=== PATIENT | male | born 1955 | race Caucasian/White ===

== ENCOUNTER 2022-10-05 09:35 | Outpatient (REF) | payer OTHER, SELFPAY ==
--- NOTE | ~2022-10-05 | XR_ITS ---
EXAMINATION: XR SHOULDER, RIGHT CLINICAL INFORMATION: Right shoulder pain after fall COMPARISON: None available. TECHNIQUE: AP external rotation, Grashey, scapular Y, and axillary views of the right shoulder. FINDINGS: The bones are intact no fracture. Glenohumeral and acromioclavicular alignment is anatomic with normal joint space. Small marginal osteophyte extends off the femoral head. There is a faint calcific density superior to the humeral head and glenoid as seen on the AP view. Possibly related to calcific tendinosis. This does not likely resemble a chip fracture. XR/XR shoulder RT min 2V IMPRESSION: 1. No acute bony abnormality. 2. Faint calcific density superior to the humeral head and glenoid, possibly related to calcific tendinosis.
--- NOTE | ~2022-10-05 | XR_ITS ---
EXAMINATION: XR HIP, LEFT CLINICAL INFORMATION: Left hip pain COMPARISON: None available. TECHNIQUE: Two views of the left hip. FINDINGS: No fracture. Alignment is anatomic. Hip joint space is maintained. Soft tissues are unremarkable. XR/XR hip LT min 2V IMPRESSION: Normal left hip.
--- NOTE | ~2022-10-05 | XR_ITS ---
EXAMINATION: XR LUMBOSACRAL SPINE WITH OBLIQUES CLINICAL INFORMATION: Low back pain COMPARISON: 01/10/2018 TECHNIQUE: AP, both oblique, and lateral views of the lumbar spine. Lateral view of the lumbosacral junction. FINDINGS: There are 5 not ribs bearing vertebral bodies in the lumbar spine. There is worsening of levoscoliosis. There are endplate spurring extending from L2 to L5. There is narrowing of intervertebral disc spaces the level of L4-L5 and vacuum phenomenon at the level of L5-S1 and L4-L5. Pedicles XR/XR lumbar spine 4V min IMPRESSION: Multilevel degenerative changes and levoscoliosis.
== END 2022-10-05 09:36 | disposition home or self-care (01) ==
LOC: HO.HHCX 09:35
PROVIDERS: Visit Provider Internal Medicine
DX: M54.42 Lumbago with sciatica, left side (principal); M25.511 Pain in right shoulder
CPT/HCPCS: 72110; 73030; 73502

== ENCOUNTER 2023-01-03 10:00 | Outpatient (RCR) | payer OTHER, SELFPAY | END 2023-01-03 10:55 | disposition home or self-care (01) | LOC: HO.PT 10:00 | PROVIDERS: PCP Internal Medicine; Visit Provider Internal Medicine | DX: M25.511 Pain in right shoulder (principal); M54.42 Lumbago with sciatica, left side | CPT/HCPCS: 97110; 97140; 97162; 97530 ==

== ENCOUNTER 2023-02-02 09:49 | Outpatient (AMB) | payer OTHER, SELFPAY ==
--- NOTE | 2023-02-02 10:03 | MHC.OFFVIS ---
Intake Intake Visit Reasons: [employer]- Right shoulder pain Intake Note: Nolberto is a 67 year old male who presents today as a new patient with complaints of bilateral shoulder pains and weakness, left greater than right. Patient describes his left shoulder pain as sharp and severe in nature. He did fall onto his left side approximately 1 year ago. Since that time his symptoms have gotten worse in spite of continued non operative treatments. He has done physical therapy for 12 weeks over the last 6 months which aggravated his pain. He has also tried Tylenol and anti-inflammatory medicines which gave him minimal relief. He has had injections in the past which gave him no relief. He reports difficulty lifting his left hand above shoulder height. Allergies No Known Allergies [No Known Allergies*] Allergy (Unverified 11/22/19 15:36) [facility] Surgical History (Updated 02/02/23 @ 10:13 by Marsha Martinez [facility]) Hx of left knee surgery Physical Exam Const Other: Well-nourished well-developed very friendly male awake alert and oriented x3 in no acute distress Extrem Other: Bilateral upper extremity examination shows good capillary refill, no skin lesions noted, normal sensation light touch Left shoulder examination shows decreased range of motion when compared to his right shoulder, 4/5 strength with supraspinatus testing, positive impingement signs, tenderness over his acromioclavicular joint, no instability Results Reviewed Results Reviewed: X-rays of the patient's right shoulder show severe acromioclavicular joint narrowing, type 2 acromion, no acute bony abnormalities Assessment & Plan Assessment & Plan (1) Impingement of right shoulder: Code(s): M25.811 - Other specified joint disorders, right shoulder (2) Impingement syndrome of left shoulder: Code(s): M75.42 - Impingement syndrome of left shoulder Plan: Mr. Abbasi presents with progressively worsening bilateral shoulder pains and weakness, left greater than right, most likely due I spent 22 minutes in reviewing the patient's records and imaging studies, seeing the patient and documenting in the medical record. Orders: Orders MR shoulder LT wo con Today M75.42 - Impingement syndrome of left shoulder Coding Level of Care Code New Pt Level 2 (61132) Diagnoses Impingement of right shoulder M25.811 Impingement syndrome of left shoulder M75.42
== END 2023-02-02 10:29 | disposition home or self-care (01) ==
PROVIDERS: PCP Internal Medicine; Visit Provider Orthopaedic Surgery
DX: M25.811 Other specified joint disorders, right shoulder (principal); M75.42 Impingement syndrome of left shoulder
CPT/HCPCS: 99202

== ENCOUNTER → 2023-02-02 09:49 | Outpatient (BNVA) | payer OTHER, SELFPAY | PROVIDERS: PCP Internal Medicine; Visit Provider Orthopaedic Surgery | DX: M25.811 Other specified joint disorders, right shoulder (principal); M75.42 Impingement syndrome of left shoulder | CPT/HCPCS: 99202 ==

== ENCOUNTER 2023-04-28 10:19 | Outpatient (REF) | payer OTHER, SELFPAY ==
--- NOTE | ~2023-04-28 | MR_ITS ---
EXAMINATION: MR SHOULDER WITHOUT CONTRAST, LEFT CLINICAL INFORMATION: Left shoulder pain and decreased range of motion. COMPARISON: Left shoulder radiographs dated 10/16/2018. TECHNIQUE: MRI of the shoulder without contrast was performed on a high-field scanner. FINDINGS: ROTATOR CUFF: Complete, full-thickness tears of the supraspinatus and infraspinatus tendons measuring approximately 5.1 x 5.7 cm (AP x ML) with retraction of the torn tendon fibers proximal to the glenohumeral articulation. Edema within the infraspinatus muscle belly consistent with an acute muscle strain. Significant attenuation and irregularity of the subscapularis tendon, consistent with a near complete full-thickness tear. There are a few thin superior tendon fibers remaining intact. Severe subscapularis, supraspinatus, and infraspinatus muscle atrophy. Intact teres minor tendon. BICEPS: Significant thickening and heterogeneity of the proximal long head biceps tendon, consistent tendinosis. There is attenuation and medial subluxation as it drapes over the lesser tuberosity, consistent with longitudinal partial tearing. CORACOACROMIAL ARCH: The undersurface of the acromion is flat with small subacromial spurs. Hwamwspn-yo-oxhrgw acromioclavicular osteoarthritis. LABRUM/CAPSULE: Blunting and heterogeneity through the periphery of the superior and posterosuperior labrum, consistent with degenerative fraying/tearing. Intact inferior joint capsule. GLENOHUMERAL JOINT/MARROW: Superior subluxation of the humeral head related to the rotator cuff tendon tears. Articular cartilage signal heterogeneity and surface irregularity with superior humeral head articular cartilage thinning. Marginal osteophytes. Dsthoapp-jk-zvmsy joint effusion with mild synovitis. MR/MR shoulder LT wo con IMPRESSION: 1. Complete, full-thickness tears of the supraspinatus and infraspinatus tendons with retraction of the tendon fibers proximal to the glenohumeral articulation. Edema within the infraspinatus muscle belly consistent with an acute muscle strain. Near complete full-thickness tear of the subscapularis tendon with a few superior tendon fibers remaining intact. Severe subscapularis, supraspinatus, and infraspinatus muscle atrophy. 2. Proximal long head biceps tendinosis with longitudinal partial tearing as it drapes over the lesser tuberosity. 3. Mrflkpes-gf-qqtrzl acromioclavicular osteoarthritis with small subacromial spurs. 4. Degenerative fraying/tearing through the periphery of the superior and posterosuperior labrum. 5. Superior subluxation humeral head related to the rotator cuff tendon tears. Mild glenohumeral osteoarthritis. Xoyvwjfu-vc-fpprg joint effusion with mild synovitis.
== END 2023-04-28 10:20 | disposition home or self-care (01) ==
LOC: HO.MRI 10:19
PROVIDERS: PCP Internal Medicine; Visit Provider Orthopaedic Surgery
DX: M75.42 Impingement syndrome of left shoulder (principal)
CPT/HCPCS: 73221

== ENCOUNTER 2023-05-17 12:55 | Outpatient (AMB) | payer OTHER, SELFPAY ==
--- NOTE | 2023-05-17 12:56 | MHC.OFFVIS ---
Intake Vital Signs 05/17/23 12:59 Height 5 ft 2 in Weight 214 lb BMI 39.1 Intake Visit Reasons: OV- MRI follow up Intake Note: Nolberto is a 67 year old Right hand dominate male who presents with his granddaughter for his MRI review of his Left shoulder. The patient states that he injured his left shoulder approximately 2 years ago when he fell directly onto his left side. Since that time he has had weakness when lifting his left hand above shoulder height. He has done physical therapy exercises which aggravated his pain. He has also tried Tylenol and anti-inflammatory medicines which gave him minimal relief. Allergies No Known Allergies [No Known Allergies*] Allergy (Verified 05/17/23 13:00) Medication List - Last Reconciled 05/17/23 by Cayden Montemayor MD acetaminophen ER 650 mg PO Q8H PRN amlodipine 5 mg PO QPM aripiprazole 5 mg PO QAM atorvastatin 40 mg PO QPM lancets (OneTouch Delica Plus Lancet) As directed loratadine 10 mg PO QAM meloxicam 15 mg PO QAM metformin ER 1,000 mg PO QPM metoprolol succinate ER 100 mg PO QPM trazodone 50 mg PO BEDTIME venlafaxine ER 150 mg PO QAM zolpidem 5 mg PO BEDTIME PFSH Surgical History (Updated 02/02/23 @ 10:13 by Marsha Martinez [facility]) Hx of left knee surgery Social History (Updated 05/17/23 @ 13:02 by Meeta Corey [facility]) Patient Tobacco Use Status: Never used Tobacco Current occupational status: retired Current occupation: Right hand dominate Physical Exam Vital Signs: BMI result Body Mass Index 39.1 Const Other: Well-nourished well-developed very friendly male awake alert and oriented x3 in no acute distress Extrem Other: Bilateral upper extremity examination shows good capillary refill, no skin lesions noted, normal sensation light touch Left shoulder examination shows full passive range of motion but decreased active range motion when compared to his right shoulder, 3/5 strength with supraspinatus testing, positive impingement signs, no instability Results Reviewed Results Reviewed: MRI of the patient's left shoulder shows a large rotator cuff tear involving the supraspinatus and infraspinatus tendons with retraction to the glenoid lip Assessment & Plan Assessment & Plan (1) Complete rotator cuff tear of left shoulder: Code(s): M75.122 - Complete rotator cuff tear or rupture of left shoulder, not specified as traumatic Plan Mr. Abbasi presents with left shoulder pain and weakness due to a chronic rotator cuff tear. I had a lengthy discussion with the patient and his granddaughter regarding the treatment options. At this point the patient's symptoms are tolerable to him. He wishes to hold off on surgery for as long as possible. I agree with this plan. Activity modifications were discussed at length with the patient. If the patient's symptoms do worsen I will have him evaluated by Dr. Elizabeth who can further discuss the risks and benefits of reverse total shoulder replacement surgery. Feel free to call me at any time should questions regarding his orthopedic management arise. I spent 22 minutes in reviewing the patient's records and imaging studies, seeing the patient and documenting in the medical record. Coding Level of Care Code Est Pt Level 2 (97982) Diagnoses Complete rotator cuff tear of left shoulder M75.122
[2023-05-17 12:59] VITALS: BMI 39.1
== END 2023-05-17 13:19 | disposition home or self-care (01) ==
PROVIDERS: PCP Internal Medicine; Visit Provider Orthopaedic Surgery
DX: M75.122 Complete rotator cuff tear or rupture of left shoulder, not specified as traumatic (principal)
CPT/HCPCS: 99213

== ENCOUNTER → 2023-05-17 12:55 | Outpatient (BNVA) | payer OTHER, SELFPAY | PROVIDERS: PCP Internal Medicine; Visit Provider Orthopaedic Surgery | DX: M75.122 Complete rotator cuff tear or rupture of left shoulder, not specified as traumatic (principal) | CPT/HCPCS: 99212 ==

== ENCOUNTER 2023-07-12 08:47 | Outpatient (REF) | payer OTHER, SELFPAY ==
[2023-07-12 12:25] LABS: Creatinine Urine 155.21 mg/dL
[2023-07-12 12:34] LABS: Alanine Aminotransferase 42 U/L (0-40); Albumin Level 4.4 g/dL (3.5-5.0); Alkaline Phosphatase 85 U/L (39-117); Anion Gap 14 (12-20); Aspartate Amino Transferase 30 U/L (5-37); Bilirubin Total 0.6 mg/dL (0.0-1.0); Blood Urea Nitrogen 14 mg/dL (9-16); Carbon Dioxide 28 mmol/L (22-29); Chloride 104 mmol/L (96-108); Cholesterol 141 mg/dL (<200); Estimated Glomerular Filt Rate > 60; Glucose Random 112 mg/dL (60-115); HDL Cholesterol 45 mg/dL (>40); LDL Cholesterol Calculated 57 mg/dL (<100); Potassium 4.1 mmol/L (3.3-5.1); Sodium 142 mmol/L (135-145); Total Protein 7.7 g/dL (6.5-8.0); Triglycerides 198 mg/dL (<150)
[2023-07-12 12:41] LABS: Microalbum/Creatinine Ratio Ur 425.8 ug/mg cr (<30)
== END 2023-07-12 08:48 | disposition home or self-care (01) ==
LOC: HO.HHCL 08:47
PROVIDERS: Visit Provider Internal Medicine
DX: E11.9 Type 2 diabetes mellitus without complications (principal)
CPT/HCPCS: 36415; 80053; 80061; 82043; 82570

== ENCOUNTER 2024-03-29 10:17 | Outpatient (REF) | payer OTHER, SELFPAY ==
[2024-03-29 11:48] LABS: Alanine Aminotransferase 59 U/L (0-40); Albumin Level 4.1 g/dL (3.5-5.0); Alkaline Phosphatase 87 U/L (39-117); Anion Gap 10 (12-20); Aspartate Amino Transferase 48 U/L (5-37); Bilirubin Total 0.4 mg/dL (0.0-1.0); Blood Urea Nitrogen 14 mg/dL (9-16); Calcium 9.7 mg/dL (8.4-10.2); Carbon Dioxide 28 mmol/L (22-29); Chloride 108 mmol/L (96-108); Cholesterol 125 mg/dL (<200); Estimated Glomerular Filt Rate > 60; Glucose Random 113 mg/dL (60-115); HDL Cholesterol 43 mg/dL (>40); LDL Cholesterol Calculated 56 mg/dL (<100); Potassium 4.8 mmol/L (3.3-5.1); Sodium 141 mmol/L (135-145); Total Protein 7.7 g/dL (6.5-8.0); Triglycerides 132 mg/dL (<150)
[2024-03-29 12:34] LABS: Prostate Specific Antigen 0.41 ng/mL (<0.05-4.0)
== END 2024-03-29 10:18 | disposition home or self-care (01) ==
LOC: HO.HHCL 10:17
PROVIDERS: Visit Provider Internal Medicine
DX: Z00.00 Encounter for general adult medical examination without abnormal findings (principal); I10 Essential (primary) hypertension; E11.9 Type 2 diabetes mellitus without complications; Z12.5 Encounter for screening for malignant neoplasm of prostate
CPT/HCPCS: 36415; 80053; 80061; 84153

== ENCOUNTER 2024-05-08 09:11 | Outpatient (REF) | payer OTHER, SELFPAY ==
--- OUTSIDE RECORDS SUMMARY | 2024-05-08 10:09 | XMS_ITS | Encounter Summary ---
Author Organization [employer] Address [address] [facility] [address] [place] [address] Care Team Providers Care Contract Forester Name Role Phone Jaxon Sousa MD Primary Care Provide r Reason for Visit * Reason Comments Rash Encounter Details Date Type Department Care Team ([facility] Contact Info) Description 05/07/2024 11:00 AM EST Office Visit [facility] [address], [place] [phone] Chandrakant Alva MD [address] [place] [address] Rash (Primary Dx); Hypertension, unspecified type Social History Tobacco Use Types Packs/Day Years Used Date Smoking Tobacco: Never Passive Smoke Exposure: Never Smokeless Tobacco: Never Depression Answer Date Recorded Patient Health Questionnaire-9 Score 2 07/25/2023 Patient Health Questionnaire-9 Score 2 07/25/2023 Last PHQ-9: Questionnaire Data Not on file 0 07/25/2023 Housing Stability Answer Date Recorded What is your housing situation today? I have marine de luna 04/27/[address] you li ve. Do you have problems with any of the following? None of the above 04/27/2023 Food Insecurity Answer Date Recorded Within the past 12 months, y ou worried that your food would run out before you got money to buy more: Never True 04/27/2023 Within the past 12 months,th e food you bought just didn't last and you didn't have enough money to get more: Never True Transportation Answer Date Recorded In the past 12 months, has l ack of transportation kept you from medical appts, meetings, work or from getting things needed for daily living? No 04/27/2023 Utilities Answer Date Recorded In the past 12 months, has t he electric, gas, oil or water company threatened to shut off services in your home? No 04/27/2023 Depression Answer Date Recorded Patient Health Questionnaire-2 Score 1 07/25/2023 Internet Access Answer Date Recorded Internet Access Q1 Yes 11/07/2023 Internet Access Q2 Not on file 11/07/2023 Sex and Gender Information Value Date Recorded Sex Assigned at Male 01/04/2022 10:14 AM EDT Legal Sex Male 10:14 AM EDT Gender Identity Male 01/04/2022 10:14 AM EDT Sexual Orientation Straight 01/04/2022 10 :14 AM EDT documented as of this encounter Last Filed Vital Signs Vital Sign Reading Time Taken Comments Blood Pressure 156/89 05/07/2024 11:21 AM EST Pulse 81 05/07/2024 11:21 AM EST Temperature 36.4 ??C (97.6 ??F) 05/07/2024 1 1:21 AM EST Respiratory Rate 20 05/07/2024 11:2 1 AM EST Oxygen Saturation 98% 05/07/2024 11: 21 AM EST Inhaled Oxygen Concentration - - Weight 97.9 kg (215 lb 12.8 oz) 025 11:21 AM EST Height - - Body Mass Index 38.23 04/10/2024 1:11 PM EST documented in this encounter Progress Notes * Chandrakant Alva MD - 05/07/2024 11:00 AM EST Subjective Patient ID: Nolberto Ladd is a 68 y.o. male. R&D Engineer: Alex SHEPHERD Nolberto was seen in walk-in center 04/10/2024 for 2-week history of itchy rash. He was diagnosed with urticaria and prescribed Zyrtec. He returns today because he tried Zyrtec and he has had no relief of sx. Itchy rash started on hands, then spread to arms, chest head, neck, fewer on bilat lower extremities. States had similar sx years ago, doesn't remember dx or tx. Denies SOB, swelling, sensation of throat tightness, new medications, soap, shampoo, detergent, or deodorant. Denies tick bite, or known contacts who have a rash. Lives with and daughter. Never smoked. Patient Active Problem List Diagnosis Chronic obstructive lung disease ([facility]) Depressive disorder Hypertension Mixed hyperlipidemia Obstructive sleep apnea syndrome Preventative health care Dry skin dermatitis MDD (major depressive disorder), recurrent, in partial remission ([facility]) Type 2 diabetes mellitus without complication, without long-term current use of insulin ([facility]) Class 2 severe obesity due to excess calories with serious comorbidity and body mass index (BMI) of38.0 to 38.9 in adult ([facility]) Chronic left-sided low back pain with left-sided sciatica Chronic right shoulder pain Routine physical examination Skin lesion The following portions of the chart were reviewed this encounter and updated as appropriate: Tobacco Allergies Meds Problems Med Hx Surg Hx Fam Hx Review of Systems Constitutional: Negative for fever. Respiratory: Negative for shortness of breath. Cardiovascular: Negative for chest pain. Gastrointestinal: Negative for abdominal pain. Skin: Positive for rash. Neurological: Negative for headaches. Objective Physical Exam Constitutional: Appearance: Normal appearance. HENT: Right Ear: Tympanic membrane, ear canal and external ear normal. Left Ear: Tympanic membrane, ear canal and external ear normal. Nose: Nose normal. Mouth/Throat: Mouth: Mucous membranes are moist. Pharynx: Oropharynx is clear. Eyes: Conjunctiva/sclera: Conjunctivae normal. Pupils: Pupils are equal, round, and reactive to light. Cardiovascular: Rate and Rhythm: Normal rate and regular rhythm. Heart sounds: No murmur heard. Pulmonary: Effort: Pulmonary effort is normal. Breath sounds: Normal breath sounds. Musculoskeletal: General: Normal range of motion. Cervical back: No tenderness. Skin: Findings: No rash. Comments: Multiple oval, round, and serpiginous maculopapular lesions with erythematosus borders ofdifferent sizes located on face, scalp, neck, chest, bilat upper extremities. Involves bilateral hands extensor surfaces, no lesions on palmar surfaces. Neurological: Mental Status: He is alert. Gait: Gait is intact. Psychiatric: Mood and Affect: Mood normal. Behavior: Behavior normal. Procedures Assessment/Plan Diagnoses and all orders for this visit: Rash ? Urticaria vs tinea corporis vs erythema migrans vs ? Lab tests ordered will call patient with results. Prescribed prednisone and Lotrimin 1% cream. Referred to [facility]. Return to clinic if rash is spreading. - RPR (Monitor) with Reflex to Titer; Future - Lyme Disease Ab with Reflex to Blot (IgG, IgM); Future Hypertension, unspecified type Has home BP monitor. Reviewed BP parameters, given written BP log that includes BP parameters, to keep daily. Bring blood pressure log to previously scheduled PCP appointment. Other orders - clotrimazole (Lotrimin) 1 % cream; Apply topically 2 times daily. - predniSONE (Deltasone) 20 MG tablet; Take 2 tablets (40 mg) by mouth Once per day for 5 days. documented in this encounter Plan of Treatment Upcoming Encounters Date Type Department Care Team (Late st Contact Info) Description 05/11/2024 1:15 PM EST Office Visit [address] [phone] Karen Ray MD [address] [place] [phone] 06/07/2024 11:30 AM EDT Office Visit [address] [phone] Jaxon Sousa MD [address] [place] [phone] Scheduled Orders Name Type Priority Associated Diagnoses Orde r Schedule RPR (Monitor) with Reflex to??Titer Lab Routine Rash Expected: 05/07/2024 (Approximate), Expires: 05/07/2025 Lyme Disease Ab with Reflex to Blot (IgG, IgM) Lab Routine Rash Expected: 05/07/2024, Expires: 05/07/2025 documented as of this encounter Visit Diagnoses Diagnosis Rash- Primary Rash and other nonspecific skin eruption Hypertension, unspecified type documented in this encounter Additional Health Concerns Assessment Noted Time PHQ-9 Depression Total Score: 2 07/25/19 24 9:14 AM EDT documented as of this encounter Care Teams Contract Forester Relationship Specialty Start Date End Date Jaxon Sousa MD [address] [place] [phone] PCP - General Internal Medicine 11/13/13 documented as of this encounter
--- OUTSIDE RECORDS SUMMARY | 2024-05-08 10:09 | XMS_ITS | Encounter Summary ---
Author Organization [employer] Address [address] [facility] [address], [place] [address] Care Team Providers Care Scale Expert Name Role Phone Jaxon Sousa MD Primary Care Provide r Encounter Details Date Type Department Care Team (Late st Contact Info) Description 04/09/2022 Orders Only [facility] MED[facility]INE [address] [place] [address] [phone] Zoe Cueva LPN Social History Tobacco Use Types Packs/Day Years Used Date Smoking Tobacco: Never Assessed Sex and Gender Information Value Date Recorded Sex Assigned at Male 01/04/2022 10:14 AM EDT Legal Sex Male 10:14 AM EDT Gender Identity Male 01/04/2022 10:14 AM EDT Sexual Orientation Straight 01/04/2022 10 :14 AM EDT COVID-19 Exposure Response Date Recorded In the last 10 days, have yo u been in contact with someone who was confirmed or suspected to have Coronavirus/COVID-19? No / Unsure 04/01/2022 11:51 AM EST documented as of this encounter Plan of Treatment Upcoming Encounters Date Type Department Care Team (Late st Contact Info) Description 05/11/2024 1:15 PM EST Office Visit [facility] MED[facility]INE [address] [place] [phone] Karen Ray MD [address] [place] [phone] 06/07/2024 11:30 AM EDT Office Visit [facility]INE [address] [place] [address] [phone] Jaxon Sousa MD [address] [place] [address] documented as of this encounter Visit Diagnoses Not on filedocumented in this encounter Care Teams Scale Expert Relationship Specialty Start Date End Date Jaxon Sousa MD [address] [place] [address] PCP - General Internal Medicine 11/13/13 documented as of this encounter
--- OUTSIDE RECORDS SUMMARY | 2024-05-08 10:09 | XMS_ITS | Encounter Summary ---
Author Organization [employer] Address [address] [facility] [address] [place] [address] Care Team Providers Care Production Line Operator Name Role Phone Jaxon Sousa MD Primary Care Provide r Encounter Details Date Type Department Care Team ([facility] Contact Info) Description 05/03/2022 Orders Only [facility] [address] [place], [place] [phone] Fauzia Bravo LPN Social History Tobacco Use Types Packs/Day Years Used Date Smoking Tobacco: Never Smokeless Tobacco: Never Sex and Gender Information Value Date Recorded [...] suspected to have Coronavirus/COVID-19? No / Unsure 04/15/2022 8:55 AM EST documented as of this encounter Plan of Treatment Upcoming Encounters Date Type Department Care Team ([facility] Contact Info) Description 05/11/2024 1:15 PM EST Office Visit [facility] MED[facility]INE [address] [place] [address] [phone] Karen Ray MD [address] [place] [phone] 06/07/2024 11:30 AM EDT Office Visit [facility] [address] [place] [phone] Jaxon Sousa MD [address] [place] [address] documented as of this encounter Visit Diagnoses Not on filedocumented in this encounter Additional Health Concerns Assessment Noted Time PHQ-9 Depression Total Score: 0 04/15/19 23 9:12 AM EST documented as of this encounter Care Teams Production Line Operator Relationship Specialty Start Date End Date Jaxon Sousa MD [address] [place] [address] PCP - General Internal Medicine 11/13/13 documented as of this encounter
--- OUTSIDE RECORDS SUMMARY | 2024-05-08 10:09 | XMS_ITS | Encounter Summary ---
Author Organization [employer] Address [address] [facility] [address] [place] [address] Care Team Providers Care Field Examiner Name Role Phone Jaxon Sousa MD Primary Care Provide r Encounter Details Date Type Department Care Team (Latest Contact Info) Description 04/10/2024 Travel Social History Tobacco Use Types Packs/Day Years [...] AM EDT documented as of this encounter Plan of Treatment Upcoming Encounters Date Type Department Care Team (Late st Contact Info) Description 05/11/2024 1:15 PM EST Office Visit [facility] MED[facility] [address] [place] [phone] Karen Ray MD [address] [place] [address] 06/07/2024 11:30 AM EDT Office Visit [facility] [address] [place] [phone] Jaxon Sousa MD [address] [place] [phone] documented as of this encounter Visit Diagnoses Not on filedocumented in this encounter Additional Health Concerns Assessment Noted Time PHQ-9 Depression Total Score: 2 07/25/19 24 9:14 AM EDT documented as of this encounter Care Teams Field Examiner Relationship Specialty Start Date End Date Jaxon Sousa MD [address] [place] [phone] PCP - General Internal Medicine 11/13/13 documented as of this encounter
--- OUTSIDE RECORDS SUMMARY | 2024-05-08 10:09 | XMS_ITS | Encounter Summary ---
Author Organization [employer] Address 75 [facility] [address] [address] Care Team Providers Care Sports Broadcasting Internship Name Role Phone Jaxon Sousa MD Primary Care Provide r Reason for Visit * Reason Comments Med Refill Encounter Details Date Type Department Care Team ([facility] st Contact Info) Description 04/29/2024 Refill [facility] [address] [place], [place] [phone] Jaxon Sousa MD [address] [place], [place] [phone] Seasonal allergies; Newly diagnosed diabetes (CMS/HCC); MDD (major depressive disorder), recurrent, in partial remission (CMS/HCC) Social History Tobacco Use Types Packs/Day Years [...] Description 05/11/2024 1:15 PM EST Office Visit [facility] [address] [place] [phone] Karen Ray MD [address] [place] [address] 06/07/2024 11:30 AM EDT Office Visit [facility] [address] [place] [address] Jaxon Sousa MD [address] [place] [address] documented as of this encounter Visit Diagnoses Diagnosis Seasonal allergies Allergic rhinitis, cause unspecified Newly diagnosed diabetes (CMS/HCC) Type II or unspecified type diabetes mellitus without mention of complication, not stated as uncontrolled MDD (major depressive disorder), recurrent, in partial remission (CMS/HCC) documented in this encounter Additional Health Concerns Assessment Noted Time PHQ-9 Depression Total Score: 2 07/25/19 24 9:14 AM EDT documented as of this encounter Care Teams Sports Broadcasting Internship Relationship Specialty Start Date End Date Jaxon Sousa MD [address] [place] [phone] PCP - General Internal Medicine 11/13/13 documented as of this encounter
--- OUTSIDE RECORDS SUMMARY | 2024-05-08 10:09 | XMS_ITS | Encounter Summary ---
Author Organization [employer] Address 75 [facility] 7t [place] [address] Care Team Providers Care School Administrator Name Role Phone Jaxon Sousa MD Primary Care Provide r Reason for Visit * Reason Comments Med Refill Encounter Details Date Type Department Care Team (Late st Contact Info) Description 05/03/2023 Refill [facility] [address] [place] [address] Teofilo Maxwell FNP MDD (major depressive disorder), recurrent, in partial remission (CMS/HCC) Social History Tobacco Use Types Packs/Day Years Used Date Smoking Tobacco: Never Passive Smoke Exposure: Never Smokeless Tobacco: Never Depression Answer Date Recorded Patient Health Questionnaire-9 Score 1 05/02/2023 Patient Health Questionnaire-9 Score 1 05/02/2023 Last PHQ-9: Questionnaire Data Not on file 0 05/02/2023 Housing Stability Answer Date Recorded What is [...] Answer Date Recorded Patient Health Questionnaire-2 Score 0 05/02/2023 Sex and Gender Information Value Date Recorded Sex Assigned at Male 01/04/2022 10:14 AM EDT Legal Sex Male 10:14 AM EDT Gender Identity Male 01/04/2022 10:14 AM EDT Sexual Orientation Straight 01/04/2022 10 :14 AM EDT documented as of this encounter Plan of Treatment Upcoming Encounters Date Type Department Care Team (Late st Contact Info) Description 05/11/2024 1:15 PM EST Office Visit [facility] [address] [place] [phone] Karen Ray MD [address] [place] [phone] 06/07/2024 11:30 AM EDT Office Visit [facility] [address] [place] [phone] Jaxon Sousa MD [address] [place] [address] documented as of this encounter Visit Diagnoses Diagnosis MDD (major depressive disorder), recurrent, in partial remission (CMS/HCC) documented in this encounter Additional Health Concerns Assessment Noted Time PHQ-9 Depression Total Score: 1 05/02/19 24 9:08 AM EST documented as of this encounter Care Teams School Administrator Relationship Specialty Start Date End Date Jaxon Sousa MD [address] [place] [phone] PCP - General Internal Medicine 11/13/13 documented as of this encounter
--- OUTSIDE RECORDS SUMMARY | 2024-05-08 10:09 | XMS_ITS | Encounter Summary ---
Author Organization [employer] Address [address] [place] [address] [place], [place] [address] Care Team Providers Care Hot Air Furnace Installer Repairer Name Role Phone Jaxon Suosa MD Primary Care Provide r Encounter Details Date Type Department Care Team (Late st Contact Info) Description 07/15/2022 Abstract [facility] MED[facility]INE [address] [place] [address] [phone] Jaxon Sousa MD [address] [place] [phone] Social History Tobacco Use Types Packs/Day Years [...] Encounters Date Type Department Care Team (Late Contact Info) Description 05/11/2024 1:15 PM EST Office Visit [facility] [address] [place] [address] [phone] Karen Ray MD [address] [place] [address] 06/07/2024 11:30 AM EDT Office Visit [facility] [address] [place] [phone] Jaxon Sousa MD [address] [place] [address], [place] [address] documented as of this encounter Procedures Procedure Name Priority Date/Time Associated Diagnosis Comments COLONOSCOPY Routine 12/17/2015 documented in this encounter Results * Colonoscopy (12/17/2015) Colonoscopy Normal Normal 12/17/2015 Narrative Karin Andrew - 12/17/2015 10:29 AM EDT Recommended 10 year follow up us Historical Provider HEALTH MAINTENANCE Edited Result - Final documented in this encounter Visit Diagnoses Not on filedocumented in this encounter Additional Health Concerns Assessment Noted Time PHQ-9 Depression Total Score: 4 05/04/19 23 11:20 AM EST documented as of this encounter Care Teams Hot Air Furnace Installer Repairer Relationship Specialty Start Date End Date Jaxon Sousa MD 230 [place] [address] PCP - General Internal Medicine 11/13/13 documented as of this encounter
--- OUTSIDE RECORDS SUMMARY | 2024-05-08 10:09 | XMS_ITS | Encounter Summary ---
Author Organization [employer] Address 75 [facility] 7t [place] [address] Care Team Providers Care Bid Analyst Name Role Phone Jaxon Sousa MD Primary Care Provide r Encounter Details Date Type Department Care Team ([facility] Contact Info) Description 04/08/2022 Orders Only [facility] [address] [place], [place] [phone] Fauzia Bravo LPN Social History Tobacco Use [...] Upcoming Encounters Date Type Department Care Team ([facility] Contact Info) Description 05/11/2024 1:15 PM EST Office Visit [facility] [address] [place] [address] [phone] Karen Ray MD 230 [place], [place] [phone] 06/07/2024 11:30 AM EDT Office Visit [facility] [address] [place] [address] [phone] Jaxon Sousa MD 230 [place], [place] [phone] documented as of this encounter Visit Diagnoses Not on filedocumented in this encounter Care Teams Bid Analyst Relationship Specialty Start Date End Date Jaxon Sousa MD [address] [place], [place] [phone] PCP - General Internal Medicine 11/13/13 documented as of this encounter
--- OUTSIDE RECORDS SUMMARY | 2024-05-08 10:09 | XMS_ITS | Encounter Summary ---
Author Organization [employer] Address 75 [facility] 7t [place] [address] Care Team Providers Care Digital Editor Name Role Phone Jaxon Sousa MD Primary Care Provide r Encounter Details Date Type Department Care Team (Late st Contact Info) Description 06/09/2022 Orders Only [facility] 505 [place], [place] [phone] Fauzia Bravo LPN Social History Tobacco Use [...] Description 05/11/2024 1:15 PM EST Office Visit [facility] [address] [place] [phone] Karen Ray MD [address] [place] [phone] 06/07/2024 11:30 AM EDT Office Visit [facility] [address] [place] [address] 12[address] Jaxon Sousa MD [address] [place] [address] documented as of this encounter Visit Diagnoses Not on filedocumented in this encounter Additional Health Concerns Assessment Noted Time PHQ-9 Depression Total Score: 4 05/04/19 23 11:20 AM EST documented as of this encounter Care Teams Digital Editor Relationship Specialty Start Date End Date Jaxon Sousa MD [address] [place] [address] PCP - General Internal Medicine 11/13/13 documented as of this encounter
--- OUTSIDE RECORDS SUMMARY | 2024-05-08 10:09 | XMS_ITS | Encounter Summary ---
Author Organization [employer] Address 75 [facility] 7t [place] [address] Care Team Providers Care Geophysical Support Specialist Name Role Phone Jaxon Sousa MD Primary Care Provide r Encounter Details Date Type Department Care Team (Late st Contact Info) Description 07/06/2022 Orders Only [facility]S 505 [place], [place] [phone] Fauzia Bravo LPN Social History Tobacco Use [...] Description 05/11/2024 1:15 PM EST Office Visit [facility] [address] [place] [phone] Karen Ray MD [address] [place] [address] 06/07/2024 11:30 AM EDT Office Visit [facility] [address] [place] [phone] Jaxon Sousa MD [address] [place] [address] 6[address] documented as of this encounter Visit Diagnoses Not on filedocumented in this encounter Additional Health Concerns Assessment Noted Time PHQ-9 Depression Total Score: 4 05/04/19 23 11:20 AM EST documented as of this encounter Care Teams Geophysical Support Specialist Relationship Specialty Start Date End Date Jaxon Sousa MD 230 [place] [address] PCP - General Internal Medicine 11/13/13 documented as of this encounter
--- OUTSIDE RECORDS SUMMARY | 2024-05-08 10:09 | XMS_ITS | Encounter Summary ---
Author Organization [employer] Address [address] [place] [address] 7[place] [address] Care Team Providers Care Photographic Equipment Mechanic Name Role Phone Jaxon Sousa MD Primary Care Provide r Reason for Visit * Reason Comments Med Refill Encounter Details Date Type Department Care Team (Late Contact Info) Description 11/19/2022 Refill [facility] [address] [place] [address] [phone] Jaxon Sousa MD [address] [place] [address] [phone] Acute left-sided low back pain with left-sided sciatica Social History Tobacco Use Types Packs/Day Years Used Date Smoking Tobacco: Never Passive Smoke Exposure: Never Smokeless Tobacco: Never Depression Answer Date Recorded Patient Health Questionnaire-9 Score 1 10/26/2022 Depression Answer Date Recorded Patient Health Questionnaire-2 Score 0 10/26/2022 Sex and Gender Information Value Date Recorded Sex Assigned at Male 01/04/2022 10:14 AM EDT Legal Sex Male 10:14 AM EDT Gender Identity Male 01/04/2022 10:14 AM EDT Sexual Orientation Straight 01/04/2022 10 :14 AM EDT documented as of this encounter Plan of Treatment Upcoming Encounters Date Type Department Care Team (Late Contact Info) Description 05/11/2024 1:15 PM EST Office Visit [facility] 230 [place], [place] [phone] Karen Ray MD 230 [place], [place] [phone] 06/07/2024 11:30 AM EDT Office Visit [facility] 230 [place] [address] Jaxon Sousa MD 230 [place] [address] documented as of this encounter Visit Diagnoses Diagnosis Acute left-sided low back pain with left-sided sciatica documented in this encounter Additional Health Concerns Assessment Noted Time PHQ-9 Depression Total Score: 1 10/27/19 23 10:42 AM EDT documented as of this encounter Care Teams Photographic Equipment Mechanic Relationship Specialty Start Date End Date Jaxon Sousa MD [address] [place] [phone] PCP - General Internal Medicine 11/13/13 documented as of this encounter
--- OUTSIDE RECORDS SUMMARY | 2024-05-08 10:09 | XMS_ITS | Encounter Summary ---
Author Organization [employer] Address 75 [facility] 7 [place] [address] Care Team Providers Care Kettle Chipper Name Role Phone Jaxon Sousa MD Primary Care Provide r Reason for Visit * Reason Comments Med Refill Encounter Details Date Type Department Care Team (Late st Contact Info) Description 06/02/2023 Refill [facility] [address] [place], [place] [phone] Jaxon Sousa MD 230 [place], [place] [phone] Social History Tobacco Use Types Packs/Day Years [...] Description 05/11/2024 1:15 PM EST Office Visit [facility]INE [address] [place] [phone] Karen Ray MD [address] [place] [address] 06/07/2024 11:30 AM EDT Office Visit [facility] [address] [place] [address] [phone] Jaxon Sousa MD [address] [place] [address] [phone] documented as of this encounter Visit Diagnoses Not on filedocumented in this encounter Additional Health Concerns Assessment Noted Time PHQ-9 Depression Total Score: 1 05/02/19 24 9:08 AM EST documented as of this encounter Care Teams Kettle Chipper Relationship Specialty Start Date End Date Jaxon Sousa MD [address] [place] [phone] PCP - General Internal Medicine 11/13/13 documented as of this encounter
--- OUTSIDE RECORDS SUMMARY | 2024-05-08 10:09 | XMS_ITS | Encounter Summary ---
Author Organization [employer] Address 75 [facility] 7 [place] [address] Care Team Providers Care Landscape Nurseryman Name Role Phone Jaxon Sousa MD Primary Care Provide r Reason for Visit * Reason Comments Med Refill Encounter Details Date Type Department Care Team ([facility] st Contact Info) Description 04/30/2024 Refill [facility] 230 [place], [place] [phone] Jaxon Sousa MD 230 [place], [place] [phone] MDD (major depressive disorder), recurrent, in partial [...] Description 05/11/2024 1:15 PM EST Office Visit [facility] [address] [place] [phone] Karen Ray MD [address] [place] [address] [phone] 06/07/2024 11:30 AM EDT Office Visit [facility] [address] [place] [phone] Jaxon Sousa MD [address] [place] [address] 42770 documented as of this encounter Visit Diagnoses Diagnosis MDD (major depressive disorder), recurrent, in partial remission (CMS/HCC) documented in this encounter Additional Health Concerns Assessment Noted Time PHQ-9 Depression Total Score: 2 07/25/19 24 9:14 AM EDT documented as of this encounter Care Teams Landscape Nurseryman Relationship Specialty Start Date End Date Jaxon Sousa MD [address] [place] [phone] PCP - General Internal Medicine 11/13/13 documented as of this encounter
--- OUTSIDE RECORDS SUMMARY | 2024-05-08 10:09 | XMS_ITS | Encounter Summary ---
Author Organization [employer] Address 75 [facility] 7[place], [place] [address] Care Team Providers Care Manufacturing Maintenance Manager Name Role Phone Jaxon Sousa MD Primary Care Provide r Encounter Details Date Type Department Care Team ([facility] Contact Info) Description 11/30/2022 Orders Only [facility] & PEDS [address] [place] [address] [phone] Zoe Cueva LPN Social History Tobacco Use [...] Upcoming Encounters Date Type Department Care Team ([facility] Contact Info) Description 05/11/2024 1:15 PM EST Office Visit [facility]INE [address] [place] [phone] Karen Ray MD 230 [place] [address] 06/07/2024 11:30 AM EDT Office Visit [facility] [address] [place] [address] [phone] Jaxon Sousa MD [address] [place] [address] documented as of this encounter Visit Diagnoses Not on filedocumented in this encounter Additional Health Concerns Assessment Noted Time PHQ-9 Depression Total Score: 1 10/27/19 23 10:42 AM EDT documented as of this encounter Care Teams Manufacturing Maintenance Manager Relationship Specialty Start Date End Date Jaxon Sousa MD [address] [place] [address] PCP - General Internal Medicine 11/13/13 documented as of this encounter
--- OUTSIDE RECORDS SUMMARY | 2024-05-08 10:09 | XMS_ITS | Encounter Summary ---
Author Organization [employer] Address 75 [facility] 7t [place] [address] Care Team Providers Care Director Of Collections Name Role Phone Jaxon Sousa MD Primary Care Provide r Encounter Details Date Type Department Care Team ([facility] st Contact Info) Description 04/10/2024 1:20 PM EST Office Visit [facility] 230 [place] [address] Jessica Navas MD 505 [place] [address] Urticaria (Primary Dx) Social History Tobacco Use Types Packs/Day Years [...] Sign Reading Time Taken Comments Blood Pressure 141/83 04/10/2024 1:11 PM EST Pulse 95 04/10/2024 1:11 PM EST Temperature 36.4 ??C (97.6 ??F) 04/10/2024 1:11 PM ES T Respiratory Rate 20 04/10/2024 1:11 PM EST Oxygen Saturation 93% 04/10/2024 1:11 PM EST Inhaled Oxygen Concentration - - Weight 97.2 kg (214 lb 3.2 oz) 04/10/2024 1:11 P M EST Height 160 cm (5' 3 ) 04/10/2024 1:11 PM EST Body Mass Index 37.94 04/10/2024 1:11 PM EST documented in this encounter Progress Notes * Jessica Navas MD - 04/10/2024 1:20 PM EST Subjective Patient ID: Nolberto Ladd is a 68 y.o. male who presents for itchy rash. HPI Nolberto noticed about 2 weeks ago some red circles that appeared on his arm, face and upper chest that were itchy. Says they started out small and red, expanded and got somewhat raised, and then disappeared. He has some active areas on both forearms right now and lesions on his chin have resolved. Denies any new medications or recent illness. No wheezing. He does take aspirin every other day for his heart. He also takes loratadine daily for allergic rhinitis. Review of Systems Constitutional: Negative for appetite change, chills and fever. HENT: Negative for congestion and mouth sores. Eyes: Negative for pain and itching. Respiratory: Negative for shortness of breath and wheezing. Skin: Positive for rash (per HPI). Allergic/Immunologic: Positive for environmental allergies. Negative for food allergies. Objective BP (!) 141/83 (BP Location: Left arm, Patient Position: Sitting, BP Cuff Size: Adult long) Pulse 95 Temp 97.6 ??F (36.4 ??C) (Temporal) Resp 20 Ht 5' 3 (1.6 m) Wt 214 lb 3.2 oz (97.2 kg) SpO2 93% BMI 37.94 kg/m?? Physical Exam Constitutional: Appearance: He is not toxic-appearing. HENT: Head: Normocephalic. Mouth/Throat: Mouth: Mucous membranes are moist. Pharynx: Oropharynx is clear. Pulmonary: Effort: Pulmonary effort is normal. Skin: Findings: Rash present. Rash is urticarial (wheals on bilateral forearms, upper chest. No lesions noted on other parts of trunk or lower extremities.). Neurological: General: No focal deficit present. Mental Status: He is alert. Psychiatric: Mood and Affect: Mood normal. Behavior: Behavior normal. Assessment/Plan Diagnoses and all orders for this visit: Urticaria: Unknown etiology at this point for the urticaria. Possibly due to aspirin he takes everyother day. Will start with daily cetirizine and told him to stop loratidine. Set up f/u with PCP Dr. Walker in 2 months. He can RTC sooner if his symptoms do not improve. - cetirizine (ZyrTEC) 10 MG tablet; Take 1 tablet (10 mg) by mouth Once per day. Future Appointments Date Time Provider Department Center 06/07/2024 11:30 AM Jaxon Abbasi MD MEDICINE [facility] documented in this encounter Plan of Treatment Upcoming Encounters Date Type Department Care Team (Late st Contact Info) Description 05/11/2024 1:15 PM EST Office Visit [facility]INE [address] [place] [phone] Karen Ray MD 230 [place] [address] 06/07/2024 11:30 AM EDT Office Visit [facility] [address] [facility] [place] [address] Jaxon Sousa MD [address] [facility] [place] [address] documented as of this encounter Visit Diagnoses Diagnosis Urticaria- Primary Unspecified urticaria documented in this encounter Additional Health Concerns Assessment Noted Time PHQ-9 Depression Total Score: 2 07/25/19 24 9:14 AM EDT documented as of this encounter Care Teams Director Of Collections Relationship Specialty Start Date End Date Jaxon Sousa MD [facility] [place] [address] PCP - General Internal Medicine 11/13/13 documented as of this encounter
--- OUTSIDE RECORDS SUMMARY | 2024-05-08 10:09 | XMS_ITS | Encounter Summary ---
Author Organization [email or web address] Address 75 [facility] 7t [place] [address] Care Team Providers Care Freight Rate Specialist Name Role Phone Jaxon Sousa MD Primary Care Provide r Encounter Details Date Type Department Care Team (Latest Contact Info) Description 05/08/2020 Abstract [facility] Dental, Provider, DDS Social History Tobacco Use Types Packs/Day Years [...] Upcoming Encounters Date Type Department Care Team ( Contact Info) Description 05/11/2024 1:15 PM EST Office Visit [facility] MED[facility]INE [address] [place] [phone] Karen Ray MD [address] [place] [phone] 06/07/2024 11:30 AM EDT Office Visit [facility] [address] [place] [address] [phone] Jaxon Sousa MD [address] [place] [phone] documented as of this encounter Visit Diagnoses Not on filedocumented in this encounter Care Teams Freight Rate Specialist Relationship Specialty Start Date End Date Jaxon Sousa MD 230 [place] [address] PCP - General Internal Medicine 11/13/13 documented as of this encounter
--- OUTSIDE RECORDS SUMMARY | 2024-05-08 10:10 | XMS_ITS | Encounter Summary ---
Author Organization [employer] Address [address] [facility] 7 [place] [address] Care Team Providers Care Face Boss Name Role Phone Jaxon Sousa MD Primary Care Provide r Reason for Visit * Reason Comments Med Refill Encounter Details Date Type Department Care Team ([facility] st Contact Info) Description 01/21/2023 Refill [facility] [address] [place], [place] [phone] Jaxon Sousa MD [address] [place], [place] [phone] Primary hypertension; Newly diagnosed diabetes ([facility]) Social History Tobacco Use Types Packs/Day Years Used Date Smoking Tobacco: Never Passive Smoke Exposure: Never Smokeless Tobacco: Never Depression Answer Date Recorded Patient Health Questionnaire-9 Score 3 01/25/2023 Patient Health Questionnaire-9 Score 3 01/25/2023 Last PHQ-9: Questionnaire Data Not on file 1 03/27/2022 Housing Stability Answer Date Recorded What is your housing situation today? I have marine de [place]una 01/04/[address] you li ve. Do you have problems with any of the following? None of the above 01/04/2023 Food Insecurity Answer Date Recorded Within the past 12 months, y ou worried that your food would run out before you got money to buy more: Never True 01/04/2023 Within the past 12 months,th e food you bought just didn't last and you didn't have enough money to get more: Never True Transportation Answer Date Recorded In the past 12 months, has l ack of transportation kept you from medical appts, meetings, work or from getting things needed for daily living? No 01/04/2023 Utilities Answer Date Recorded In the past 12 months, has t he electric, gas, oil or water company threatened to shut off services in your home? No 01/04/2023 Depression Answer Date Recorded Patient Health Questionnaire-2 Score 1 01/25/2023 Sex and Gender Information Value Date Recorded Sex Assigned at Male 01/04/2022 10:14 AM EDT Legal Sex Male 10:14 AM EDT Gender Identity Male 01/04/2022 10:14 AM EDT Sexual Orientation Straight 01/04/2022 10 :14 AM EDT documented as of this encounter Plan of Treatment Upcoming Encounters Date Type Department Care Team (Late st Contact Info) Description 05/11/2024 1:15 PM EST Office Visit [facility] [address] [place] [phone] Karen Ray MD [address] [place] [phone] 06/07/2024 11:30 AM EDT Office Visit [facility] [address] [place] [phone] Jaxon Sousa MD [address] [place] [phone] documented as of this encounter Visit Diagnoses Diagnosis Primary hypertension Unspecified essential hypertension Newly diagnosed diabetes ([facility]) Type II or unspecified type diabetes mellitus without mention of complication, not stated as uncontrolled documented in this encounter Additional Health Concerns Assessment Noted Time PHQ-9 Depression Total Score: 1 10/27/19 23 10:42 AM EDT documented as of this encounter Care Teams Face Boss Relationship Specialty Start Date End Date Jaxon Sousa MD [address] [place] [phone] PCP - General Internal Medicine 11/13/13 documented as of this encounter
--- OUTSIDE RECORDS SUMMARY | 2024-05-08 10:10 | XMS_ITS | Encounter Summary ---
Author Organization [employer] Address [address] [facility] [address], [place] [address] Care Team Providers Care Channel Worker Name Role Phone Jaxon Sousa MD Primary Care Provide r Reason for Visit * Reason Onset Date Comments Error 03/25/2023 Encounter Details Date Type Department Care Team ([facility] st Contact Info) Description 03/25/2023 Telephone [facility] [address] [place], [place] [phone] Jaxon Sousa MD [address] [place], [place] [phone] Error Social History Tobacco Use Types Packs/Day Years [...] 1:15 PM EST Office Visit [facility] [address] [place] [phone] Karen Ray MD [address] [place] [address] 06/07/2024 11:30 AM EDT Office Visit [facility] [address] [place] [phone] Jaxon Sousa MD [address] [place] [phone] documented as of this encounter Visit Diagnoses Not on filedocumented in this encounter Additional Health Concerns Assessment Noted Time PHQ-9 Depression Total Score: 3 01/26/20 23 9:30 AM EST documented as of this encounter Care Teams Channel Worker Relationship Specialty Start Date End Date Jaxon Sousa MD [address] [place] [phone] PCP - General Internal Medicine 11/13/13 documented as of this encounter
--- OUTSIDE RECORDS SUMMARY | 2024-05-08 10:10 | XMS_ITS | Clinical Summary ---
Author Organization [employer] Address [address] [place] [address] Care Team Providers Care Manager Account Management Name Role Phone Jaxon Sousa MD Primary Care Provide r Allergies No known active allergies Medications Blood Glucose Monitoring Suppl (FreeStyle Lite) w/Device kitIndications: Newly diagnosed diabetes (CMS/[facility]) 1 Units 2 times daily. 1 kit 08/18/19 23 Active OneTouch Delica Lancets 33G misc TEST BLOOD SUGAR TWICE DAILY 100 each 11 08/20/19 23 Active Blood Glucose Monitoring Suppl (ONE TOUCH ULTRA 2) w/Device kit 1 applicator 2 times daily. TEST BLOOD SUGAR TWICE DAILY 1 kit 08/20/19 23 Active metoprolol succinate XL (Toprol-XL) 100 MG 24 hr tablet Take 100 mg by mouth at bedtime. 11/02/19 23 Active furosemide (Lasix) 40 MG tablet 11/26/19 23 Active atorvastatin (Lipitor) 40 MG tablet Take 40 mg by mouth at bedtime. 11/02/19 23 Active Aspirin Low Dose 81 MG EC tablet TAKE 1 TABLET BY MOUTH EVERY MORNING 90 tablet 3 06/02/19 24 Active Ventolin HFA 108 (90 Base) MCG/ACT inhaler INHALE 2 PUFFS BY MOUTH EVERY 4 TO 6 HOURS NEEDED 18 g 3 06/24/19 24 Active traZODone (Desyrel) 50 MG tabletIndicatio ns:MDD (major depressive disorder), recurrent, in partial remission (CMS/HCC) Take 1 tablet (50 mg) by mouth at bedtime. 90 tablet 1 11/01/19 24 Active venlafaxine XR (Effexor XR) 150 MG 24 hr capsuleIndicati ons:MDD (major depressive disorder), recurrent, in partial remission (CMS/HCC) Take 1 capsule (150 mg) by mouth in the morning. 90 capsule 3 11/01/19 24 Active ARIPiprazole (Abilify) 5 MG tabletIndicatio ns:MDD (major depressive disorder), recurrent, in partial remission (CMS/HCC) Take 1 tablet (5 mg) by mouth in the morning. 90 tablet 3 11/01/19 24 Active montelukast (Singulair) 10 MG tablet TAKE 1 TABLET BY MOUTH EVERY EVENING 90 tablet 3 11/22/19 24 Active amLODIPine (Norvasc) 5 MG tabletIndicatio ns:Primary hypertension TAKE 1 TABLET BY MOUTH EVERY EVENING 90 tablet 1 01/17/20 24 Active fluticasone (Flonase) 50 MCG/ACT nasal sprayIndication s:Seasonal allergies USE 2 SPRAYS IN EACH NOSTRIL IN THE MORNING 48 g 3 02/16/20 24 Active acetaminophen (Tylenol 8 Hour) 650 MG ER tabletIndicatio ns:Pain TAKE 1 TABLET BY MOUTH EVERY 8 HOURS NEEDED 60 tablet 3 02/28/20 24 Active Fluticasone-[place] meterol 250-50 MCG/ACT aerosol powderIndicatio ns:Chronic obstructive pulmonary disease, unspecified COPD type (CMS/HCC) INHALE 1 PUFF BY MOUTH TWICE DAILY RINSE MOUTH AFTER USING. 180 each 03/02/20 24 Active cetirizine (ZyrTEC) 10 MG tabletIndicatio ns:Urticaria Take 1 tablet (10 mg) by mouth Once per day. 30 tablet 2 04/10/19 25 025 Active metFORMIN XR (Glucophage-XR) 500 MG 24 hr tabletIndicatio ns:Newly diagnosed diabetes (CMS/HCC) TAKE 2 TABLETS BY MOUTH EVERY DAY IN THE EVENING 180 tablet 1 04/30/19 25 Active zolpidem (Ambien) 5 MG tabletIndicatio ns:MDD (major depressive disorder), recurrent, in partial remission (CMS/HCC) Take 1 tablet (5 mg) by mouth at bedtime. 30 tablet 5 04/30/19 25 Active clotrimazole (Lotrimin) 1 % cream Apply topically 2 times daily. 30 g 05/08/19 25 Active predniSONE (Deltasone) 20 MG tablet Take 2 tablets (40 mg) by mouth Once per day for 5 days. 10 tablet 05/08/19 25 025 Active loratadine (Claritin) 10 MG tabletIndicatio ns:Seasonal allergies TAKE 1 TABLET BY MOUTH EVERY MORNING 90 tablet 1 10/13/19 24 025 Discontinued metFORMIN XR (Glucophage-XR) 500 MG 24 hr tabletIndicatio ns:Newly diagnosed diabetes (CMS/HCC) TAKE 2 TABLETS BY MOUTH EVERY DAY IN THE EVENING 180 tablet 1 10/13/19 24 025 Discontinued zolpidem (Ambien) 5 MG tabletIndicatio ns:MDD (major depressive disorder), recurrent, in partial remission (CMS/HCC) Take 1 tablet (5 mg) by mouth at bedtime. 30 tablet 5 11/01/19 24 025 Discontinued(R eorder (will not trigger notification to Pharmacy)) Active Problems Problem Noted Date Diagnosed Date Skin lesion 03/06/2024 Assessment & Plan (03/06/2024 10:23 AM EST): Images from the original note were not included. Pt with hyperpigmented lesion on his chest, noticed it for > 1 month Plan: [facility] derm referral Routine physical examination 06/28/2023 Assessment & Plan (06/28/2023 8:52 AM EDT): Patient is here for a routine physical exam Exam today within normal limits Class 2 severe obesity due t o excess calories with serious comorbidity and body mass index (BMI) of 38.0 to 38.9 in adult 10/05/2022 Assessment & Plan (06/28/2023 8:54 AM EDT): Patient has been counseled and educated about diet and exercise. Personal goal of weight loss discussedPatient has comorbidity of:Patient has comorbidity of: DM Assessment & Plan (10/05/2022 9:06 AM EDT): Patient has been counseled and educated about diet and exercise. Personal goal of weight loss discussedPatient has comorbidity of:Patient has comorbidity of: DM Chronic left-sided low back pain with left-sided sciatica 10/05/2022 Assessment & Plan (01/06/2023 2:22 PM EDT): Pt here for a follow up, previously with c/o left sided low back pain intensity 7/10 with radiation to left hip and left leg. Exam was suggestive of sciatica. Pt taking Acetaminophen Plain films of LS spine and left hip showed: Multilevel degenerative changes and levoscoliosis Finished PT Plan: will refer to [facility] 3 month follow up Assessment & Plan (12/07/2022 9:34 AM EDT): Pt with c/o left sided low back pain intensity 8/10 with radiation to left hip and left leg. Exam suggestive of sciatica. Pt taking Acetaminophen Plain films of LS spine and left hip showed: Multilevel degenerative changes and levoscoliosis Undergoing PT 1 month follow up Assessment & Plan (10/05/2022 9:21 AM EDT): Pt with c/o left sided low back pain intensity 8/10 with radiation to left hip and left leg. Exam suggestive of sciatica. Pt taking Acetaminophen Plan: Obtain plain films of LS spine and left hip PT evaluation 1 month follow up Chronic right shoulder pain 10/05/2022 Assessment & Plan (01/06/2023 2:25 PM EDT): Pt here for a follow up Last visit he was here s/p fall, landed on his side, since then c/o right shoulder pain Likely due to injury Plain film left shoulder showed calcific tendinitis , using NSAIDS (meloxicam with good results ) Finished PT Still c/o pain and decreased ROM Pt already using a cane to prevcent falls Ortho evaluation Assessment & Plan (12/07/2022 9:33 AM EDT): Pt here s/p fall, landed on his side, since then c/o right shoulder pain Likely due to injury Plain film left shoulder showed calcific tendinitis , using NSAIDS (meloxicam with good results ) Currently undergoing PT F/u if no improvement Pt already using a cane to prevcent falls Assessment & Plan (10/05/2022 9:22 AM EDT): Pt here s/p fall, landed on his side, since then c/o right shoulder pain Likely due to injury Plan: Plain film left shoulder, NSAIDS F/u if no improvement Pt already using a cane to prevcent falls Type 2 diabetes mellitus wit hout complication, without long-term current use of insulin 08/17/2022 Assessment & Plan (03/06/2024 10:09 AM EST): Pt here for a follow up in regards of his DM Last Hgb 03/06/2024: 6.4 He is on a regimen of: Metformin XR 500 mg 1 tab po daily Microalbumin 07/12/2023 661 Ophthalmology: referred Pt was referred to our software educator and [employer] previously Assessment & Plan (11/01/2023 11:14 AM EDT): Pt here for a follow up in regards of his DM Last Hgb 11/01/2023: 6.4 Glucometer today: average 111 He is on a regimen of: Metformin XR 500 mg 1 tab po daily Microalbumin Pt was referred to our software educator and [employer] previously Assessment & Plan (06/28/2023 9:51 AM EDT): Pt here for a follow up in regards of his DM Last Hgb 06/28/2023: 6.2 Glucometer today: average 103 He is on a regimen of: Metformin XR 500 mg 1 tab po daily Microalbumin Pt was referred to our software educator and [employer] previously Assessment & Plan (12/07/2022 9:35 AM EDT): Pt here for a short term follow up in regards of his recently diagnosed DM Last Hgb 12/07/2022 was A1c 6.1 Glucometer today: average 108 He is on a regimen of: Metformin XR 500 mg 1 tab po daily Microalbumin Pt was referred to our software educator and [employer] Assessment & Plan (10/05/2022 9:05 AM EDT): Pt here for a short term follow up in regards of his recently diagnosed DM Last Hgb 08/17/2022 was A1c 6.6 Glucometer today: He is on a regimen of: Metformin XR 500 mg 1 tab po daily Microalbumin Pt was referred to our software educator and [employer] Assessment & Plan (08/17/2022 11:27 AM EDT): FBS 126 Hgb A1c 6.6 New diagnosis Plan: Start Metformin XR 500 mg 1 tab po daily Obtain Microalbumin Follow up in 1 month Referral to software educator and [employer] MDD (major depressive disord er), recurrent, in partial remission 05/04/2022 Assessment & Plan (11/01/2023 11:12 AM EDT): Pt has been stable for years Used to see Teofilo CHANCE Previously with auditory hallucinations, nightmares. Doing well, stable on medications started by former Psychiatrist Dr. Moon, but with lower dose of Zolpidem 5 mg. Plan: Continue Venlafaxine XR 150 mg daily, Aripiprazole 5 mg daily, Trazodone 50 mg at bedtime, and Zolpidem 5 mg at bedtime. Since he has been stable I will continue prescribing. Assessment & Plan (07/25/2023 9:38 AM EDT): Previously with auditory hallucinations, nightmares. Doing well, stable on medications started by former Psychiatrist Dr. Moon, but with lower dose of Zolpidem 5 mg. Continue Venlafaxine XR 150 mg daily, Aripiprazole 5 mg daily, Trazodone 50 mg at bedtime, and Zolpidem 5 mg at bedtime. Since this provider will be retiring, patient is now referred back to his PCP for further medication management. He should contact [facility] with any issues or concerns. All his questions were answere and I have wished him well. He agrees with the plan. Assessment & Plan (05/02/2023 9:52 AM EST): Previously with auditory hallucinations, nightmares. Doing well, stable on medications started by former Psychiatrist Dr. Moon, but with lower dose of Zolpidem 5 mg. Continue Venlafaxine XR 150 mg daily, Aripiprazole 5 mg daily, Trazodone 50 mg at bedtime, and Zolpidem 5 mg at bedtime. Today 05/02/2023 provider informed the pt that I would be retiring, but we would make every effort to ensure continuity of care. F/U with me in 3 months. He agrees with the plan. Assessment & Plan (01/25/2023 10:01 AM EST): Previously with auditory hallucinations, nightmares. Doing well, stable on medications started by former Psychiatrist Dr. Moon, but with lower dose of Zolpidem 5 mg. Continue Venlafaxine XR 150 mg daily, Aripiprazole 5 mg daily, Trazodone 50 mg at bedtime, and Zolpidem 5 mg at bedtime. F/U with me in 3 months. He agrees with the plan. Assessment & Plan (10/26/2022 11:35 AM EDT): Previously with auditory hallucinations, nightmares. Doing well, stable on medications started by former Psychiatrist Dr. Moon, but with lower dose of Zolpidem 5 mg. Continue Venlafaxine XR 150 mg daily, Aripiprazole 5 mg daily, Trazodone 50 mg at bedtime, and Zolpidem 5 mg at bedtime. F/U with me in 3 months. He agrees with the plan. Assessment & Plan (07/27/2022 5:00 PM EDT): Previously with auditory hallucinations, nightmares. Doing well, stable on medications started by former Psychiatrist Dr. Moon, but with lower dose of Zolpidem 5 mg. F/U with me in 3 months. He agrees with the plan. Assessment & Plan (05/04/2022 12:43 PM EST): Previously with auditory hallucinations, nightmares. Doing well, stable on medications started by former Psychiatrist Dr. Moon. F/U with me in 2-3 months. He agrees with the plan. Dry skin dermatitis 04/15/2022 Assessment & Plan (04/15/2022 9:29 AM EST): Lac hydrin prescribed Preventative health care 04/14/2022 Assessment & Plan (03/06/2024 10:04 AM EST): PSA ordered Most recent Colonoscopy 12/17/[address] Fitzpatrick Assessment & Plan (08/17/2022 11:15 AM EDT): Most recent Colonoscopy 12/17/[address] Fitzpatrick Assessment & Plan (04/15/2022 9:17 AM EST): Exam today within normal limits Most recent Colonoscopy 12/17/[address] Fitzpatrick Obstructive sleep apnea syndrome 10/19/2016 Assessment & Plan (03/06/2024 10:01 AM EST): Sleep Study was done on 05/15/2012 and showed moderate CHANDRAKANT in the supine position, He now has a Cpap . Pt tells me he is not using it regularly because he is not getting relief Will repeat Sleep titration study. Pt scheduled for 03/16/2024 Assessment & Plan (11/01/2023 11:15 AM EDT): Sleep Study was done on 05/15/2012 and showed moderate CHANDRAKANT in the supine position, He now has a Cpap . Pt tells me he is not using it regularly because he is not getting relief Will repeat Sleep titration study Assessment & Plan (04/14/2022 5:31 PM EST): Sleep Study was done on 05/15/2012 and showed moderate CHANDRAKANT in the supine position, He now has a Cpap and is using with good results Chronic obstructive lung disease 02/26/2016 Assessment & Plan (06/28/2023 8:54 AM EDT): Pt used to be under the care of career placement specialist (Dr Martinez) last note on 01/2019 his impression was that pt had COPD but was concerned that the LEONOR inhibitor he was taking was contributing to his cough so he recommended to discontinue it. Pt reported back to him that despite stopping the LEONOR inhibitor his cough remained He asked him to HOLD his Advair. and continue to use his singular and Pro-Air MDI. Pt here with no recent exacerbations Assessment & Plan (04/14/2022 5:30 PM EST): Pt under the care of career placement specialist (Dr Martinez) last note on 01/2019 his impression was that pt had COPD but was concerned that the LEONOR inhibitor he was taking was contributing to his cough so he recommended to discontinue it. Pt reported back to him that despite stopping the LEONOR inhibitor his cough remained He asked him to HOLD his Advair. and continue to use his singular and Pro-Air MDI. Depressive disorder 12/30/2011 Assessment & Plan (04/14/2022 5:29 PM EST): Patient with Depression His Psychiatrist Dr Moon retired,he is now under our Psychopharmacology clinic He is on a regimen of:: venlafaxine ER 150 mg daily, Abilify 10 mg po daily , Ambien 10mg po daily. and Trazodone 50 mg at bedtime and Ambien 10 mg 1/2 tab at bed time. Hypertension 12/30/2011 Assessment & Plan (03/06/2024 10:01 AM EST): Pt here for a follow up BP currently controlled on a regimen of Norvasc 5mg po daily and Metoprolol XL 100 mg po daily started by Dr Hare and Furosemide 60 mg q morning, Losartan was discontinued due to concerns of angioedema I suspect his back and shoulder pain are contributing to his elevated blood pressure Plan: Continue current regimen Most recent electrolytes, Bun and Creatinine done on: 07/12/2023 were wnl. patient advised to adhere to a low sodium diet, encouraged about medication compliance, counseled about weight loss. Assessment & Plan (11/01/2023 9:41 AM EDT): Pt here for a follow up BP currently controlled on a regimen of Norvasc 5mg po daily and Metoprolol XL 100 mg po daily started by Dr Hare and Furosemide 60 mg q morning, Losartan was discontinued due to concerns of angioedema I suspect his back and shoulder pain are contributing to his elevated blood pressure Plan: Continue current regimen Most recent electrolytes, Bun and Creatinine done on: 07/12/2023 were wnl. patient advised to adhere to a low sodium diet, encouraged about medication compliance, counseled about weight loss. Assessment & Plan (01/06/2023 2:32 PM EDT): Pt here for a follow up BP currently uncontrolled on a regimen of Norvasc 5mg po daily and Metoprolol XL 100 mg po daily started by Dr Hare and Furosemide 60 mg q morning, Losartan was discontinued due to concerns of angioedema I suspect his back and shoulder pain are contributing to his elevated blood pressure Plan: Will address pain first. Pt recommended to continue to use Acetaminophen as needed and will refer for consideration of steroid injections to his shoulder and back since he is not a good candidate for NSAIDS Most recent electrolytes, Bun and Creatinine done on: 07/21/2022 were wnl. patient advised to adhere to a low sodium diet, encouraged about medication compliance, counseled about weight loss. Assessment & Plan (08/17/2022 9:05 AM EDT): Pt here for a follow up BP currently uncontrolled on a regimen of Norvasc 5mg po daily and Metoprolol XL 100 mg po daily started by Dr Hare and Furosemide 60 mg q morning, Losartan was discontinued due to concerns of angioedema Plan: Referred to our [facility] program Most recent electrolytes, Bun and Creatinine done on: 07/21/2022 were wnl. patient advised to adhere to a low sodium diet, encouraged about medication compliance, counseled about weight loss. Assessment & Plan (04/15/2022 9:29 AM EST): Pt here for a follow up BP currently uncontrolled on a regimen of Norvasc 2.5mg po daily and Metoprolol XL 100 mg po daily started by Dr Hare and Furosemide 60 mg q morning, Losartan was discontinued due to concerns of angioedema Plan: Increase amlodipine to 5 mg po daily Pt also part of our CD[facility] program Most recent electrolytes, Bun and Creatinine done on: 07/29/2020 were wnl. Will repeat patient advised to adhere to a low sodium diet, encouraged about medication compliance, counseled about weight loss. Mixed hyperlipidemia 12/30/2011 Assessment & Plan (08/17/2022 11:14 AM EDT): Patient with elevated lipids. Most recent lipid profile from: 07/21/2022 shows a total cholesterol of: 136 Triglycerides of: 142 HDL of: 46 and LDL of: 67 Currently on a regimen of: Atorvastatin 20mg po qhs. Lipids at target advised to try to adhere to a low cholesterol diet, counseled and educated about diet and exercise, Patient encouraged to come up with a personal goal for weight loss. Assessment & Plan (04/14/2022 5:33 PM EST): Patient with elevated lipids. Most recent lipid profile from: 02/04/2021 shows a total cholesterol of: 129 Triglycerides of: 107 HDL of: 46 and LDL of: 64 Currently on a regimen of: Atorvastatin 20mg po qhs. Lipids at target advised to try to adhere to a low cholesterol diet, counseled and educated about diet and exercise, Patient encouraged to come up with a personal goal for weight loss. Will repeat Encounters Date Type Department Care Team Description 05/07/2024 11:00 AM EST Office Visit [facility] [address] [place] [phone] Chandrakant Alva MD Rash (Primary Dx); Hypertension, unspecified type 04/30/2024 Refill [facility] [address], [place] [phone] Jaxon Sousa MD MDD (major depressive disorder), recurrent, in partial remission (CMS/HCC) 04/29/2024 Refill [facility] [address] [place] [address] Jaxon Sousa MD Seasonal allergies; Newly diagnosed diabetes (CMS/HCC); MDD (major depressive disorder), recurrent, in partial remission (CMS/HCC) 04/10/2024 1:20 PM EST Office Visit [facility] [address], [place] [phone] Jessica Navas MD Urticaria (Primary Dx) 04/10/2024 Travel 03/06/2024 10:00 AM EST Office Visit [facility] [address] [place] [phone] Jaxon Sousa MD Type 2 diabetes mellitus without complication, without long-term current use of insulin ([facility]) (Primary Dx); Primary hypertension; Obstructive sleep apnea syndrome; Preventative health care; Skin lesion; Encounter for immunization 03/06/2024 Travel 03/02/2024 Refill [facility] [address] [place] [address] Jaxon Sousa MD Chronic obstructive pulmonary disease, unspecified COPD type ([facility]) 02/27/2024 Refill [facility] [address] [place] [address] Jaxon Sousa MD Pain 02/24/2024 Patient Outreach [facility] [address] [place] [address] Jaxon Sousa MD Pre-visit Planning ([facility] screening was completed on 04/27/2023) 02/23/2024 Telephone [facility] [address] [place] [address] Jaxon Sousa MD Referral 02/22/2024 Telephone [facility] [address] [place] [address] Jaxon Sousa MD Chart Prep 02/15/2024 Refill [facility] [address] [place] [address] Jaxon Sousa MD Seasonal allergies from Last 3 Months Immunizations Name Administration Dates Next Due Influenza High-dose Quadriva lent Preservative Free 12/07/2022,12/26/2019 Influenza injectable quadriv alent IIV4 with preservative 12/08/2017,02/08/2017,12/12/2014 Influenza injectable quadriv alent preservative free 04/02/2021,12/14/2018,02/26/2016 Influenza, High Dose Seasona l, Preservative Free 03/06/2024 Influenza, IIV3, injectable 11/13/2013, 1 Influenza, Split (incl. black fied surface antigen) 04/12/2012 Moderna Covid-19 Vaccine 12+ 02/19/2021,06/04/19 21,05/06/2020 Moderna Covid-19 Vaccine 6+ Bivalent 04/01/2022 Pneumococcal Polysaccharide PPSV23 01/12/2001 TD (adult), 2 Lf tetanus tox oid, preservative free, adsorbed 02/04/2000 Tdap 03/06/2024,11/13/2013 Zoster, live 03/14/2014 Social History Tobacco Use Types Packs/Day Years Used Date Smoking Tobacco: Never Passive Smoke Exposure: Never Smokeless Tobacco: Never Tobacco Cessation:Counseling Given: Not Answered Depression Answer Date Recorded Patient Health Questionnaire-9 [...] Orientation Straight 01/04/2022 10 :14 AM EDT Last Filed Vital Signs Vital Sign Reading [...] 12.8 oz) 025 11:21 AM EST Height 160 cm (5' 3 ) 04/10/2024 1:11 PM EST Body Mass Index 38.23 04/10/2024 1:11 PM EST Plan of Treatment Upcoming Encounters Date Type Department Care Team (Late st Contact Info) Description 05/11/2024 1:15 PM EST Office Visit [facility] [address] [place] [phone] Karen Ray MD [address] [place] [address] 06/07/2024 11:30 AM EDT Office Visit [facility] [address] [place] [address] Jaxon Sousa MD [address] [place], [place] [phone] Health Maintenance Due Date Last Done Comments CT Colonography 1953 FIT DNA/Cologuard 1953 FIT 1953 FOBT 1953 Sigmoidoscopy 1953 Diabetes: Foot Exam 06/24/1963 Eye Exam 06/24/1963 Pneumococcal Vaccine: 50+ Years (2 of 2 - PCV) 01/12/2002 01/12/2001 RSV Patients and Patients Aged 60 years or older (1 - Risk 60-74 years 1-dose series) 2013 Zoster Vaccines (2 of 3) 05/09/2014 03/14/2014 COVID-19 Vaccine ( - season) 2023 04/01/2022, 02/19/2021, 06/03/2020, Additional history exists SDOH Screening 04/27/2024 04/27/2023 Diabetes: Urine Protein Screening 07/11/2024 07/12/2023, 07/21/2022 Depression Screening 07/24/2024 07/25/2023, 07/25/19 Diabetes: Hemoglobin A1C 09/03/2024 024, 11/01/2023, 06/28/2023, Additional history exists Alcohol/Substance Use Screening 03/06/2025 03/06/2024 Lipid Panel 03/29/2025 03/29/2024, 05/0 09/2023, 07/21/2022, Additional history exists Tobacco Screening 05/07/2025 05/07/2024 Colonoscopy 12/16/2025 12/17/2015 Colorectal Cancer Screening 12/16/2025 DTaP/Tdap/Td Vaccines (3 - Td or Tdap) 03/06/2034 03/06/2024, 11/13/2013, 02/04/2000 Hepatitis C Screening Completed 07/21/2022 Influenza Vaccine Completed 03/06/2024, , 04/02/2021, Additional history exists HIB Vaccines Aged Out No longer eligi ble based on patient's age to complete this topic HPV Vaccines Aged Out No longer eligi ble based on patient's age to complete this topic Hepatitis A Vaccines Aged Out No long er eligible based on patient's age to complete this topic Hepatitis B Vaccines Aged Out No long er eligible based on patient's age to complete this topic IPV Vaccines Aged Out No longer eligi ble based on patient's age to complete this topic Meningococcal Vaccine Aged Out No dolores jackie eligible based on patient's age to complete this topic RSV under 20 months Aged Out No longe r eligible based on patient's age to complete this topic Rotavirus Vaccines Aged Out No longer eligible based on patient's age to complete this topic Procedures Procedure Name Priority Date/Time Associated Diagnosis Comments PSA, TOTAL Routine 03/29/2024 10:22 AM EST LIPID PANEL, STANDARD Routine 03/29/2024 10:22 AM EST Type 2 diabetes mellitus without complication, without long-term current use of insulin ([facility]) COMPREHENSIVE METABOLIC PANEL Routine 03/29/2024 10:22 AM EST Primary hypertension POCT GLYCATED HEMOGLOBIN, TOTAL Routine 03/06/2024 10:07 AM EST Type 2 diabetes mellitus without complication, without long-term current use of insulin (CMS/HCC) POCT GLUCOSE Routine 03/06/2024 10:03 AM EST Type 2 diabetes mellitus without complication, without long-term current use of insulin (CMS/HCC) ALBUMIN, RANDOM URINE W/CREATININE Routine 07/12/2023 8:52 AM EDT Type 2 diabetes mellitus without complication, without long-term current use of insulin (CMS/HCC) HEPATITIS C AB W/REFL TO HCV RNA, QN, PCR Routine 07/21/2022 9:36 AM EDT Depressive disorder Preventative health care HM COLONOSCOPY Routine 12/17/2015 from Last 3 Months or Most Recently Relevant to Health Maintenance Results * PSA,Total (03/29/2024 10:22 AM EST) Prostate Specific Antigen 0.41 <0.05 - 4.0 ng/mL [facility] Comment:PSA methodology: Abb erika De i ChemiluminescentMicroparticle Immunoassay (CMIA) 03/29/2024 10:2 2 AM EST 03/29/2024 11:20 AM EST us Jaxon Abbasi MD LAB BLOOD ORDERABLES Final Result [facility] [address] [place] [address] [phone] * Lipid Panel, Standard (03/29/2024 10:22 AM EST) Triglycerides 132 <150 mg/dL [facility] Comment:Desirable Triglyceri de: less than 150 mg/dLBorderline High Triglyceride 150-199 mg/dLHigh Triglyceride: 200-499 mg/dLVery High Triglyceride: greater than or equal to 5OO mg/dL Cholesterol 125 <200 mg/dL [facility] Comment:Desirable Cholestero l: less than 200 mg/dLBorderline High Cholesterol: 200-239 mg/dLHigh Cholesterol: greater than 239 mg/dL LDL Cholesterol Calculated 56 <100 mg/dL [facility] Comment:Desirable LDL: less than 100 mg/dLNear Optimal/Above Optimal LDL: 110- 129 mg/dLBorderline High LDL: 130-159 mg/dLHigh LDL: 160-189 mg/dLVery High LDL: greater than or equal to 190 mg/dL HDL Cholesterol 43 >40 mg/dL [facility] Comment:Desirable HDL: great er than 40 mg/dL Note: This HDL assay may give artificially low results in patients with liver disease. Blood Venous blood specimen / Unknown 03/29/2024 10:22 AM EST 03/29/2024 11:20 AM EST us Jaxon Abbasi MD LAB BLOOD ORDERABLES Final Result [facility] [address] [place] [phone] * (ABNORMAL) Comprehensive Metabolic Panel (03/29/2024 10:22 AM EST) Sodium 141 135 - 145 mmol/L [facility] Potassium 4.8 3.3 - 5.1 mmol/L [facility] Comment:Slight Hemolysis.Int erpret result with caution. Chloride 108 96 - 108 mmol/L [facility] Carbon Dioxide 28 22 - 29 mmol/L [facility] Anion Gap 10(L) 12 - 20 [facility] Urea Nitrogen (BUN) 14 9 - 16 mg/dL [facility] Creatinine, Serum 0.96 0.5 - 1.4 mg/dL [facility] Estimated Glomerular Filt Rate >60 [facility] Comment:Chronic Kidney Disea se: Estimated GFR < 60 mL/min/1.68l4Alphwk Kidney Disease: Estimated GFR < 15 mL/min/1.73m2 Glucose 113 60 - 115 mg/dL [facility] Calcium 9.7 8.4 - 10.2 mg/dL [facility] Bilirubin, Total 0.4 0.0 - 1.0 mg/dL [facility] Aspartate Amino Transferase 48(H) 5 - 37 U/L [facility] Comment:Slight Hemolysis.Int erpret result with caution. Alanine Aminotransferase 59(H) 0 - 40 U/L [facility] Total Protein 7.7 6.5 - 8.0 g/dL [facility] Albumin Level 4.1 3.5 - 5.0 g/dL [facility] Alkaline Phosphatase 87 39 - 117 U/L [facility] Blood Venous blood specimen / Unknown 03/29/2024 10:22 AM EST 03/29/2024 11:20 AM EST Result Mindi Abbasi MD LAB BLOOD ORDERABLES Final Result Performing Organization Address City/State/[facility] Co de Phone Number [facility] [address] [place] [phone] * (ABNORMAL) POCT HGB A1C (03/06/2024 10:07 AM EST) Hemoglobin A1C 6.4(A) 4.0 - 6.0 % QC Media Lot # [id number] Lot# Expiration Date Blood 03/06/2024 10:0 7 AM EST Result Mindi Abbasi MD POINT OF CARE TEST EN TER/EDIT ORDERABLES Final Result * POCT Glucose (03/06/2024 10:03 AM EST) Glucose Blood, POC 140 60 - 200 mg/dL QC Media Lot # [id number] Lot# Expiration Date Blood Capillary blood specimen / Unknown 03/06/2024 10:03 AM EST Result Mindi Abbasi MD POINT OF CARE TEST EN TER/EDIT ORDERABLES Final Result * (ABNORMAL) Albumin, Random Urine W/Creatinine (07/12/2023 8:52 AM EDT) Creatinine, Urine 155.21 mg/dL [facility] Microalbumin Urine 661.0 mg/L H [facility] Microalbum Creatinine Ratio Ur 425.8(H) <30 ug/mg cr [facility] Comment:Albumin/Creatinine R atio Reference Ranges: Normal: < 30 ug/mg creatinine Microalbuminuria: 30 - 300 ug/mg creatinineClinical Albuminuria: > 300 ug/mg creatinine Urine (Urine, Random) 07/12/2023 8:52 AM EDT 07/12/2023 11:36 AM EDT Jaxon Abbasi MD LAB URINE ORDERABLES Final Result Performing Organization Address City/[facility] Co de Phone Number [facility] [address] [place] [address] [phone] * Hepatitis C Antibody with Reflex to HCV, RNA, Quantitative, Real-Time PCR (07/21/2022 9:36 AM EDT) Hepatitis C Antibody NON-REACT ELIOT NON-REACT ELIOT [facility] [place] [facility] [employer] Index 0.12 <1.00 [employer] [place] [facility] [employer] Comment: HCV antibody was non-reactive. There is no laboratory evidence of HCV infection. In most cases, no further action is required. However, if recent HCV exposure is suspected, a test for HCV RNA (test code 50008) is suggested. For additional information please refer to http://education.pMDsoft/faq/GKH51u0 (This link is being provided for informational/ educational purposes only.) Blood Venous blood specimen / Unknown 07/21/2022 9:36 AM EDT 07/21/2022 9:37 AM EDT Narrative [facility] - 07/21/2022 9:01 PM EDT FASTING:YES FASTING: YES us Jaxon Abbasi MD LAB BLOOD ORDERABLES Final Result Performing Organization Address City/[facility]/ZIP Co de Phone Number [facility] [address] [facility], [place] [address] [facility] [place] [facility] [address] [place] [phone] * Hm Colonoscopy (12/17/2015) Colonoscopy Normal Normal 12/17/2015 Christine Karin Andrew - 12/17/2015 10:29 AM EDT Recommended 10 year follow up us Historical Provider MD HEALTH MAINTENANCE Edited Result - Final from Last 3 Months or Most Recently Relevant to Health Maintenance Insurance [facility] [place] Sub[place] Plan / Payer (Ef fective 2022-Present) Name:Nolberto Pena Relation to Subscriber:Self Name:Nolberto Pena Payer ID:Not on file Type:Not on file Address: [address] STANDARD Care Teams Manager Account Management Relationship Specialty Start Date End Date Jaxon Sousa MD [address] [place] [phone] PCP - General Internal Medicine 11/13/13
[2024-05-09 09:38] LABS: Lyme Abs Screen <0.90 index
[2024-05-10 11:58] LABS: RPR Rapid Plasma Reagin NON-REACTIVE (NON-REACTIVE)
== END 2024-05-08 09:12 | disposition home or self-care (01) ==
LOC: HO.HHCL 09:11
PROVIDERS: Visit Provider Emergency Medicine
DX: R21 Rash and other nonspecific skin eruption (principal)
CPT/HCPCS: 36415; 86592; 86617; 86618

== ENCOUNTER 2024-09-06 16:38 | Outpatient (REF) | payer OTHER, SELFPAY ==
[2024-09-06 17:37] LABS: Microalbum/Creatinine Ratio Ur 392.6 ug/mg cr (<30)
== END 2024-09-06 16:39 | disposition home or self-care (01) ==
LOC: HO.LNP 16:38
PROVIDERS: Visit Provider Internal Medicine
DX: E11.9 Type 2 diabetes mellitus without complications (principal)
CPT/HCPCS: 82043; 82570

== ENCOUNTER 2025-01-15 11:18 | Outpatient (AMB) | payer OTHER, SELFPAY ==
--- NOTE | 2025-01-15 11:44 | MHC.OFFVIS ---
Intake Visit Reasons: Phimosis Intake Note: New Patient is present for Phimosis Urology Rx:none Blood Thinners:none Imaging completed: none [employer] Required: Yes [employer] Language: Ukrainian Accompanied by: Self / Same As Patient Allergies No Known Allergies (No Known Allergies*) Allergy (Verified 01/15/25 11:46) HPI Comments Details: Gage is a pleasant Ukrainian-speaking male. He is a patient of Dr. Walker. He is seen for the following urologic conditions - phimosis Ukrainian translation provided by qualified medical doctor md Progressive Unable to retract foreskin Diabetic Did say responded to prior topical cream Trial topical steroid PFSH Surgical History (System 06/30/23 @ 11:35 by Marcia Cárdenas) Hx of left knee surgery Social History (System 06/30/23 @ 11:35 by Marcia Cárdenas) Patient Tobacco Use Status: Never used Tobacco Current occupational status: retired Current occupation: Right hand dominate Review of Systems Const Denies chills and Denies fever(s) Card Reports no additional complaints and Denies syncope Resp Denies cough GI Denies abdominal pain and Denies heartburn Reports as per HPI and Denies change in libido Neuro Denies syncope Psych Denies change in libido Endo Denies change in libido Physical Exam Const General: cooperative, healthy appearing, comfortable and no acute distress Orientation/consciousness: patient oriented x3 HEENT Face and sinus: Yes normal facial exam Mouth: moist mucous membranes Neck Neck: Yes normal visual inspection, Yes full ROM and Yes trachea midline Chest Chest palpation & inspection: normal inspection of the chest Resp Effort & Inspection: normal respiratory effort, able to speak in complete sentences and no respiratory distress GI Inspection: Yes normal to inspection Back/Spine/Pelvis Cervical Spine: normal cervical lordosis Thoracic/Lumbar Spine: thoracic and lumbar spine normal to inspection Skin General skin exam: no rashes or lesions noted Neuro General: patient oriented x3, gait normal, tone normal and moves all extremities Extrem General: Yes normal to inspection and Yes capillary refill normal Assessment & Plan Assessment & Plan (1) Phimosis: Code(s): N47.1 - Phimosis Category: Medical Plan Trial topical therapy Medications: New betamethasone dipropionate 0.05% Thin coat 2 times per day 1 appl topical BID 15 grams 0RF N47.1 - Phimosis, Q55.69 - Other congenital malformation of penis Patient Instructions: This note is constructed using voice recognition software. While every effort has been made to ensure accuracy director radio news errors may have been included. Imaging studies, laboratory and physical exam results were discussed and reviewed in detail. No major barriers to patient understanding were identified. An opportunity to ask questions regarding the treatment plan was provided. All questions were answered. The patient expressed understanding and agreement with the above treatment plan. The patient is aware they should contact our office by phone for worsening of their current condition or the appearance of new urologic symptoms. Compliance is encouraged with any medications and followup testing that is ordered. It is a privilege to participate in the urologic care of your patient. If you have any questions or concerns regarding treatment for the above conditions, or other urologic issues, please do not hesitate to contact me. The office telephone contact is [phone]. Sincerely, Dr Douglas Hall MD, [facility] - Urology Compassionate Specialist Care for the Genitourinary System Coding Level of Care Code New Pt Level 4 (55239) Diagnoses Phimosis N47.1
--- OUTSIDE RECORDS SUMMARY | 2025-01-15 13:30 | XMS_ITS | Encounter Summary ---
Author Organization [employer] Address [address] [facility] 7[place], [place] [address] Care Team Providers Care Director Of Development And Marketing Name Role Phone Jaxon Sousa MD Primary Care Provide r Encounter Details Date Type Department Care Team (Late st Contact Info) Description 04/09/2022 Orders Only [facility] MEDICINE [address] [place], [place] [phone] Zoe Cueva LPN Social History Tobacco Use [...] as of this encounter Plan of Treatment Not on file documented as of this encounter Visit Diagnoses Not on filedocumented in this encounter Care Teams Director Of Development And Marketing Relationship Specialty Start Date End Date Jaxon Sousa MD [address] [place], [place] [phone] PCP - General Internal Medicine 11/13/13 documented as of this encounter
--- OUTSIDE RECORDS SUMMARY | 2025-01-15 13:30 | XMS_ITS | Encounter Summary ---
Author Organization [employer] Address [address] [facility] 7[place], [place] [address] Care Team Providers Care Community Service Representative Name Role Phone Jaxon Sousa MD Primary Care Provide r Encounter Details Date Type Department Care Team ([facility] st Contact Info) Description 07/15/2022 Abstract [facility] MEDICINE [address] [place], [place] [phone] Jaxon Sousa MD [address] [place], [place] [phone] Social History Tobacco Use Types Packs/Day Years [...] on file documented as of this encounter Procedures Procedure Name Priority Date/Time Associated Diagnosis Comments COLONOSCOPY Routine 12/17/2015 documented in this encounter Results * Colonoscopy (12/17/2015) Colonoscopy Normal Normal 12/17/2015 Narrative Karin Andrew - 12/17/2015 10:29 AM EDT Recommended 10 year follow up Historical Provider HEALTH MAINTENANCE Edited Result - Final documented in this encounter Visit Diagnoses Not on filedocumented in this encounter Additional Health Concerns Assessment Noted Time PHQ-9 Depression Total Score: 4 05/04/19 23 11:20 AM EST documented as of this encounter Care Teams Community Service Representative Relationship Specialty Start Date End Date Jaxon Sousa MD [address] [place] [address] PCP - General Internal Medicine 11/13/13 documented as of this encounter
--- OUTSIDE RECORDS SUMMARY | 2025-01-15 13:30 | XMS_ITS | Encounter Summary ---
Author Organization [employer] Address [address] [place] [address] 7[place], [place] [address] Care Team Providers Care Senior Web Designer Name Role Phone Jaxon Sousa MD Primary Care Provide r Reason for Visit * Reason Comments Med Refill Encounter Details Date Type Department Care Team ([facility] st Contact Info) Description 01/21/2023 Refill [facility] MEDICINE [address] [place], [place] [phone] Jaxon Sousa MD [address] [place], [place] [phone] Primary hypertension; Newly diagnosed diabetes ([facility]/HCC) Social History Tobacco Use Types Packs/Day Years [...] hypertension Unspecified essential hypertension Newly diagnosed diabetes (HCC) Type II or unspecified type diabetes mellitus without mention of complication, not stated as uncontrolled documented in this encounter Additional Health Concerns Assessment Noted Time PHQ-9 Depression Total Score: 1 10/27/19 23 10:42 AM EDT documented as of this encounter Care Teams Senior Web Designer Relationship Specialty Start Date End Date Jaxon Sousa MD [address] [place] [address] PCP - General Internal Medicine 11/13/13 documented as of this encounter
--- OUTSIDE RECORDS SUMMARY | 2025-01-15 13:30 | XMS_ITS | Encounter Summary ---
Author Organization [employer] Address [address] [facility] 7[place] [address] Care Team Providers Care Radio Interference Supervisor Name Role Phone Jaxon Sousa MD Primary Care Provide r Encounter Details Date Type Department Care Team (Late st Contact Info) Description 05/03/2022 Orders Only [facility] MED & PEDS [address] [place], [place] [phone] Fauzia Bravo LPN Social History Tobacco Use [...] AM EST documented as of this encounter Functional Status * Over the past 2 weeks, how often have you been bothered by any of the following problems? Question Answer Date of Assessment Author Patient Health Questionnaire -2 Score 0 05/04/2022 11:20 AM Terrell Barraza [place] * If you checked off any problems on this questionnaire so far, Question Answer Date of Assessment Author How difficult have these problems made it for you to do your work, take care of things at home, or get along with other people? Somewhat difficult 05/04/2022 11:20 AM Terrell Barraza [place] * Over the past 2 weeks, how often have you been bothered by any of the following problems? Question Answer Date of Assessment Author Little interest or pleasure in doing things Not at all 05/04/2022 11:20 AM Rocio Barraza [place] Feeling down, depressed, or hopeless Not at all 05/04/2022 11:20 AM Rocio Barraza [place] Trouble falling or staying asleep, or sleeping too much Not at all 05/04/2022 11:20 AM Rocio Barraza [place] Feeling tired or having little energy Several days 05/04/2022 11:20 AM Rocio Barraza [place] Poor appetite or overeating More than half the days 05/04/2022 11:20 AM Rocio Barraza [place] Feeling bad about yourself - or that you are a failure or have let yourself or your family down Not at all 05/04/2022 11:20 AM Rocio Barraza [place] Trouble concentrating on things, such as reading the newspaper or watching television Several days 05/04/2022 11:20 AM Rocio Barraza MA Moving or speaking so slowly that other people could have noticed? Or the opposite - being so fidgety or restless that you have been moving around a lot more than usual. Not at all 05/04/2022 11:20 AM Rocio Barraza MA Thoughts that you would be better off or hurting yourself in some way Not at all 05/04/2022 11:20 AM Rocio Barraza MA Patient Health Questionnaire-9 Score 4 05/04/2022 11:20 AM Rocio Barraza [place] documented as of this encounter Plan of Treatment Not on file documented as of this encounter Visit Diagnoses Not on filedocumented in this encounter Additional Health Concerns Assessment Noted Time PHQ-9 Depression Total Score: 0 04/15/19 23 9:12 AM EST documented as of this encounter Care Teams Radio Interference Supervisor Relationship Specialty Start Date End Date Jaxon Sousa MD [address] [place] [address] PCP - General Internal Medicine 11/13/13 documented as of this encounter
--- OUTSIDE RECORDS SUMMARY | 2025-01-15 13:30 | XMS_ITS | Encounter Summary ---
Author Organization [employer] Address [address] [facility] 7 [place] [address] Care Team Providers Care Developer Relations Manager Name Role Phone Jaxon Sousa MD Primary Care Provide r Reason for Visit * Reason Comments Med Refill Encounter Details Date Type Department Care Team ([facility] st Contact Info) Description 05/03/[address] [facility] MED & PEDS [address] [place] [address] Teofilo Maxwell FNP MDD (major depressive disorder), [...] documented as of this encounter Care Teams Developer Relations Manager Relationship Specialty Start Date End Date Jaxon Sousa MD [address] [place] [address] PCP - General Internal Medicine 11/13/13 documented as of this encounter
--- OUTSIDE RECORDS SUMMARY | 2025-01-15 13:30 | XMS_ITS | Encounter Summary ---
Author Organization [employer] Address [address] [place] [address] 7[place], [place] [address] Care Team Providers Care Classified Advertising Clerk Name Role Phone Jaxon Sousa MD Primary Care Provide r Reason for Visit * Reason Comments Med Refill Encounter Details Date Type Department Care Team ([facility] st Contact Info) Description 06/02/[address] [facility] MEDICINE [address] [place], [place] [phone] Jaxon Sousa MD [address] [place], [place] [phone] Social History Tobacco Use Types Packs/Day Years [...] documented as of this encounter Care Teams Classified Advertising Clerk Relationship Specialty Start Date End Date Jaxon Sousa MD [address] [place] [phone] PCP - General Internal Medicine 11/13/13 documented as of this encounter
--- OUTSIDE RECORDS SUMMARY | 2025-01-15 13:30 | XMS_ITS | Encounter Summary ---
Author Organization [employer] Address [address] [facility] 7[address] [place] [address] Care Team Providers Care Charging Manipulator Name Role Phone Jaxon Sousa MD Primary Care Provide r Encounter Details Date Type Department Care Team (Late st Contact Info) Description 06/09/2022 Orders Only [facility] MED & PEDS [address] [place], [place] [phone] Fauzia Bravo LPN Social History Tobacco Use [...] documented as of this encounter Care Teams Charging Manipulator Relationship Specialty Start Date End Date Jaxon Sousa MD [address] [place] [address] PCP - General Internal Medicine 11/13/13 documented as of this encounter
--- OUTSIDE RECORDS SUMMARY | 2025-01-15 13:30 | XMS_ITS | Encounter Summary ---
Author Organization [employer] Address [address] [place] [address] 7[place], [place] [address] Care Team Providers Care Visual Supervisor Name Role Phone Jaxon Sousa MD Primary Care Provide r Reason for Visit * Reason Comments Med Refill Encounter Details Date Type Department Care Team (Late st Contact Info) Description 11/19/2022 Refill [facility] MEDICINE [address] [place] [address] Jaxon Sousa MD [address] [place] [address] Acute left-sided low back pain with left-sided [...] documented as of this encounter Care Teams Visual Supervisor Relationship Specialty Start Date End Date Jaxon Sousa MD [address] [place] [address] PCP - General Internal Medicine 11/13/13 documented as of this encounter
--- OUTSIDE RECORDS SUMMARY | 2025-01-15 13:30 | XMS_ITS | Encounter Summary ---
Author Organization [employer] Address [address] [facility] 7[address] [place] [address] Care Team Providers Care Usability Strategist Name Role Phone Jaxon Sousa MD Primary Care Provide r Encounter Details Date Type Department Care Team (Late st Contact Info) Description 07/06/2022 Orders Only [facility] MED & PEDS [address] [place], [place] [phone] Fauzia Bravo LPN Social History Tobacco Use [...] documented as of this encounter Care Teams Usability Strategist Relationship Specialty Start Date End Date Jaxon Sousa MD [address] [place] [address] PCP - General Internal Medicine 11/13/13 documented as of this encounter
--- OUTSIDE RECORDS SUMMARY | 2025-01-15 13:30 | XMS_ITS | Encounter Summary ---
Author Organization [employer] Address [address] [place] [address] 7[place], [place] [address] Care Team Providers Care Semiconductor Testing Group Leader Name Role Phone Jaxon Sousa MD Primary Care Provide r Reason for Visit * Reason Onset Date Comments Error 03/25/2023 Encounter Details Date Type Department Care Team ([facility] st Contact Info) Description 03/25/2023 Telephone [facility] MEDICINE [address] [place], [place] [phone] Jaxon Sousa MD [address] [place], [place] [phone] Error Social History Tobacco Use Types Packs/Day [...] documented as of this encounter Care Teams Semiconductor Testing Group Leader Relationship Specialty Start Date End Date Jaxon Sousa MD [address] [place] [phone] PCP - General Internal Medicine 11/13/13 documented as of this encounter
--- OUTSIDE RECORDS SUMMARY | 2025-01-15 13:31 | XMS_ITS | Encounter Summary ---
Author Organization [employer] Address [address] [facility] 7[place], [place] [address] Care Team Providers Care Cultural Historian Name Role Phone Jaxon Sousa MD Primary Care Provide r Reason for Visit * Reason Comments Med Refill Encounter Details Date Type Department Care Team ([facility] st Contact Info) Description 05/19/[address] [facility] MEDICINE [address] [place], [place] [phone] Karen Ray MD [address] [place], [place] [phone] Jose gonzaleze Social History Tobacco Use Types Packs/Day Years [...] as of this encounter Visit Diagnoses Diagnosis Granuloma annulare Other specified erythematous condition documented in this encounter Additional Health Concerns Assessment Noted Time PHQ-9 Depression Total Score: 2 07/25/19 24 9:14 AM EDT documented as of this encounter Care Teams Cultural Historian Relationship Specialty Start Date End Date Jaxon Sousa MD [address] [place] [address] PCP - General Internal Medicine 11/13/13 documented as of this encounter
--- OUTSIDE RECORDS SUMMARY | 2025-01-15 13:31 | XMS_ITS | Encounter Summary ---
Author Organization [employer] Address [address] [facility] [address] [place] [address] Care Team Providers Care Regional Account Director Name Role Phone Jaxon Sousa MD Primary Care Provide r Encounter Details Date Type Department Care Team (Late st Contact Info) Description 04/08/2022 Orders Only [facility] MED & PEDS [address] [place], [place] [phone] Fauzia Bravo LPN Social History Tobacco Use [...] on filedocumented in this encounter Care Teams Regional Account Director Relationship Specialty Start Date End Date Jaxon Sousa MD [address] [place] [phone] PCP - General Internal Medicine 11/13/13 documented as of this encounter
--- OUTSIDE RECORDS SUMMARY | 2025-01-15 13:31 | XMS_ITS | Encounter Summary ---
Author Organization [employer] Address [address] [facility] [address], [place] [address] Care Team Providers Care Shell Mold Bonder Name Role Phone Jaxon Sousa MD Primary Care Provide r Encounter Details Date Type Department Care Team (Late st Contact Info) Description 11/30/2022 Orders Only [facility] CHC MED & PEDS [address] [place], [place] [phone] Zoe Cueva LPN Social History Tobacco Use [...] documented as of this encounter Care Teams Shell Mold Bonder Relationship Specialty Start Date End Date Jaxon Sousa MD [address] [place] [phone] PCP - General Internal Medicine 11/13/13 documented as of this encounter
--- OUTSIDE RECORDS SUMMARY | 2025-01-15 13:31 | XMS_ITS | Encounter Summary ---
Author Organization [employer] Address [address] [facility] [address] [place] [address] Care Team Providers Care Education And Development Manager Name Role Phone Jaxon Sousa MD Primary Care Provide r Encounter Details Date Type Department Care Team (Latest Contact Info) Description 05/08/2020 Abstract [facility] Dental, Provider, DDS Social History Tobacco [...] on filedocumented in this encounter Care Teams Education And Development Manager Relationship Specialty Start Date End Date Jaxon Sousa MD [address] [place] [phone] PCP - General Internal Medicine 11/13/13 documented as of this encounter
--- OUTSIDE RECORDS SUMMARY | 2025-01-15 13:31 | XMS_ITS | Encounter Summary ---
Author Organization [employer] Address [address] [place] [address] [address] [address] Care Team Providers Care Kidney Trimmer Name Role Phone Jaxon Sousa MD Primary Care Provide r Reason for Visit * Reason Comments Med Refill Encounter Details Date Type Department Care Team ([facility] st Contact Info) Description 05/21/2024 Refill [facility] MEDICINE [address] [place], [place] [phone] Jaxon Sousa MD [address] [place], [place] [phone] Seasonal allergies Social History Tobacco Use Types Packs/Day Years [...] Diagnosis Seasonal allergies Allergic rhinitis, cause unspecified documented in this encounter Additional Health Concerns Assessment Noted Time PHQ-9 Depression Total Score: 2 07/25/19 24 9:14 AM EDT documented as of this encounter Care Teams Kidney Trimmer Relationship Specialty Start Date End Date Jaxon Sousa MD [address] [place] [address] PCP - General Internal Medicine 11/13/13 documented as of this encounter
--- OUTSIDE RECORDS SUMMARY | 2025-01-15 13:31 | XMS_ITS | Encounter Summary ---
Author Organization [employer] Address [address] [place] [address] [address], [place] [address] Care Team Providers Care Forest Products Teacher Name Role Phone Jaxon Sousa MD Primary Care Provide r Reason for Visit * Reason Comments Med Refill Encounter Details Date Type Department Care Team ([facility] st Contact Info) Description 04/30/2024 Refill [facility] MEDICINE [address] [place], [place] [phone] Jaxon Sousa MD [address] [place], [place] [phone] MDD (major depressive disorder), recurrent, in partial [...] documented as of this encounter Care Teams Forest Products Teacher Relationship Specialty Start Date End Date Jaxon Sousa MD [address] [place] [phone] PCP - General Internal Medicine 11/13/13 documented as of this encounter
--- OUTSIDE RECORDS SUMMARY | 2025-01-15 13:31 | XMS_ITS | Encounter Summary ---
Author Organization [employer] Address [address] [facility] [address], [place] [address] Care Team Providers Care Warp Yarn Sorter Name Role Phone Jaxon Sousa MD Primary Care Provide r Reason for Visit * Reason Comments Med Refill Encounter Details Date Type Department Care Team ([facility] st Contact Info) Description 07/20/2024 Refill [facility] MEDICINE [address] [place], [place] [phone] Jaxon Sousa MD [address] [place], [place] [phone] Primary hypertension Social History Tobacco Use Types Packs/Day Years Used Date Smoking Tobacco: Never Passive Smoke Exposure: Never Smokeless Tobacco: Never Depression Answer Date Recorded Patient Health Questionnaire-9 Score 12 06/07/2024 Patient Health Questionnaire-9 Score 12 06/07/2024 Last PHQ-9: Questionnaire Data Not on file 0 06/07/2024 Housing Stability Answer Date Recorded What is your housing situation today? I have [place] 06/07/[address] you li ve. Do you have problems with any of the following? None of the above 06/07/2024 Food Insecurity Answer Date Recorded Within the past 12 months, y ou worried that your food would run out before you got money to buy more: Never True 06/07/2024 Within the past 12 months,th e food you bought just didn't last and you didn't have enough money to get more: Never True 05/2024 Transportation Answer Date Recorded In the past 12 months, has l ack of transportation kept you from medical appts, meetings, work or from getting things needed for daily living? No 06/07/2024 Utilities Answer Date Recorded In the past 12 months, has t he electric, gas, oil or water company threatened to shut off services in your home? No 06/07/2024 Depression Answer Date Recorded Patient Health Questionnaire-2 Score 6 06/07/2024 Internet Access Answer Date Recorded Internet Access [...] Diagnoses Diagnosis Primary hypertension Unspecified essential hypertension documented in this encounter Additional Health Concerns Assessment Noted Time PHQ-9 Depression Total Score: 12 025 11:40 AM EDT documented as of this encounter Care Teams Warp Yarn Sorter Relationship Specialty Start Date End Date Jaxon Sousa MD [address] [place] [phone] PCP - General Internal Medicine 11/13/13 documented as of this encounter
--- OUTSIDE RECORDS SUMMARY | 2025-01-15 13:31 | XMS_ITS | Clinical Summary ---
Author Organization [employer] Address [address] [facility] [address] [place] [address] Care Team Providers Care Expert Medical Writer Name Role Phone Jaxon Sousa MD Primary Care Provide r Allergies No known active allergies Medications * This document contains information received from the source organization and may not represent a complete record from that organization. Blood Glucose Monitoring Suppl (FreeStyle Lite) w/Device kitIndications:Ne wly diagnosed diabetes (HCC) 1 Units 2 times daily. 1 kit 3 Active OneTouch Delica Lancets 33G misc TEST BLOOD SUGAR TWICE DAILY 100 each 11 3 Active Blood Glucose Monitoring Suppl (ONE TOUCH ULTRA 2) w/Device kit 1 applicator 2 times daily. TEST BLOOD SUGAR TWICE DAILY 1 kit 3 Active metoprolol succinate XL (Toprol-XL) 100 MG 24 hr tablet Take 100 mg by mouth at bedtime. 3 Active furosemide (Lasix) 40 MG tablet 3 Active atorvastatin (Lipitor) 40 MG tablet Take 40 mg by mouth at bedtime. 3 Active Ventolin HFA 108 (90 Base) MCG/ACT inhaler INHALE 2 PUFFS BY MOUTH EVERY 4 TO 6 HOURS NEEDED 18 g 3 4 Active fluticasone (Flonase) 50 MCG/ACT nasal sprayIndications: Seasonal allergies USE 2 SPRAYS IN EACH NOSTRIL IN THE MORNING 48 g 3 4 Active Fluticasone-Salme terol 250-50 MCG/ACT aerosol powderIndications :Chronic obstructive pulmonary disease, unspecified COPD type ([facility]/HCC) ([facility]) INHALE 1 PUFF BY MOUTH TWICE DAILY RINSE MOUTH AFTER USING. 180 each 4 Active Aspirin Low Dose 81 MG EC tablet TAKE 1 TABLET BY MOUTH EVERY MORNING 90 tablet 3 5 Active triamcinolone (Kenalog) 0.1 % creamIndications: Granuloma annulare Apply topically if needed in the morning and at bedtime (pain and swelling). 30 g 5 Active clotrimazole (Lotrimin) 1 % cream Apply topically 2 times daily. 30 g 5 Active amLODIPine (Norvasc) 5 MG tabletIndications :Primary hypertension TAKE 1 TABLET BY MOUTH EVERY EVENING 90 tablet 1 5 Active acetaminophen (Tylenol 8 Hour) 650 MG ER tabletIndications :Pain TAKE 1 TABLET BY MOUTH EVERY 8 HOURS NEEDED 60 tablet 3 5 Active empagliflozin (Jardiance) 10 MGIndications:Typ e 2 diabetes mellitus without complication, without long-term current use of insulin ([facility]) Take 1 tablet (10 mg) by mouth Once per day. 30 tablet 11 5 09/20/19 26 Active venlafaxine XR (Effexor XR) 150 MG 24 hr capsuleIndication s:MDD (major depressive disorder), recurrent, in partial remission (CMS/HCC) TAKE 1 CAPSULE BY MOUTH EVERY MORNING 90 capsule 5 Active metFORMIN XR (Glucophage-XR) 500 MG 24 hr tabletIndications :Newly diagnosed diabetes ([facility]) TAKE 2 TABLETS BY MOUTH EVERY DAY IN THE EVENING 180 tablet 5 Active zolpidem (Ambien) 5 MG tabletIndications :MDD (major depressive disorder), recurrent, in partial remission (CMS/HCC) TAKE 1 TABLET BY MOUTH AT BEDTIME 30 tablet 5 5 Active ARIPiprazole (Abilify) 5 MG tabletIndications :MDD (major depressive disorder), recurrent, in partial remission (CMS/HCC) Take 1 tablet (5 mg) by mouth in the morning. 90 tablet 3 5 Active montelukast (Singulair) 10 MG tablet TAKE 1 TABLET BY MOUTH EVERY EVENING 90 tablet 3 5 Active Active Problems Problem Noted Date Diagnosed Date Phimosis of penis 12/06/2024 Assessment & Plan (12/06/2024 11:54 AM EDT): Will refer to Urology for evaluation Skin lesion 03/06/2024 Assessment & Plan (03/06/2024 10:23 AM EST): Images from the original note were not included. Pt with hyperpigmented lesion on his chest, noticed it for > 1 month Plan: [facility] derm referral Routine physical examination 06/28/2023 Assessment & Plan (06/28/2023 8:52 AM EDT): Patient is here for a routine physical exam Exam today within normal limits Class 2 severe obesity due t o excess calories with serious comorbidity and body mass index (BMI) of 37.0 to 37.9 in adult 10/05/2022 Assessment & Plan (09/06/2024 10:27 AM EDT): Patient has been counseled and educated about diet and exercise. Personal goal of weight loss discussedPatient has comorbidity of: Patient has comorbidity of: DM Dietary Recommendations: Fruits, vegetables, whole grains, protein foods, and fat-free or low-fat dairy products are healthy choices. Eat different types of protein foods in your diet. This can include seafood, lean meats, poultry, beans, peas, lentils, nuts, seeds, soy products, and eggs. Limit foods and beverages higher in added sugars, saturated fat, and sodium. Exercise Recommendations: At least 150 minutes of moderate-intensity physical activity per week, or an equivalent combination of moderate- and vigorous-intensity activity Assessment & Plan (06/07/2024 11:57 AM EDT): Patient has been counseled and educated about diet and exercise. Personal goal of weight loss discussedPatient has comorbidity of:Patient has comorbidity of: DM Assessment & Plan (06/28/2023 8:54 AM EDT): [...] use of insulin 08/17/2022 Assessment & Plan (12/06/2024 11:56 AM EDT): Pt here for a follow up in regards of his DM Last Hgb 12/06/2024: 6.2 Eye exam: Follows with Dr erazo Microalbumin: 09/06/2024: 146 Pt was referred to our adaptive physical educator and Digital Advertising Specialist previously Plan: continue current regimen Assessment & Plan (09/06/2024 10:33 AM EDT): Pt here for a follow up in regards of his DM Last Hgb 09/06/2024: 6.2 Pt was referred to our adaptive physical educator and Digital Advertising Specialist previously Plan: continue current regimen Assessment & Plan (06/07/2024 11:53 AM EDT): Pt here for a follow up in regards of his DM Last Hgb 03/06/2024: 6.4 He is on a regimen of: Metformin XR 500 mg 1 tab po daily Microalbumin 07/12/2023 661 Ophthalmology: referred Pt was referred to our adaptive physical educator and Digital Advertising Specialist previouslyPt here for a follow up in regards of his DM Last Hgb 06/07/2024: 6.7 Pt was referred to our adaptive physical educator and Digital Advertising Specialist previously Plan: continue current regimen Assessment & Plan (03/06/2024 10:09 AM EST): Pt here for a follow up in regards of his DM Last Hgb 03/06/2024: 6.4 He is on a regimen of: Metformin XR 500 mg 1 tab po daily Microalbumin 07/12/2023 661 Ophthalmology: referred Pt was referred to our adaptive physical educator and Digital Advertising Specialist previously Assessment & Plan (11/01/2023 11:14 AM EDT): Pt here for a follow up in regards of his DM Last Hgb 11/01/2023: 6.4 Glucometer today: average 111 He is on a regimen of: Metformin XR 500 mg 1 tab po daily Microalbumin Pt was referred to our adaptive physical educator and Digital Advertising Specialist previously Assessment & Plan (06/28/2023 9:51 AM EDT): Pt here for a follow up in regards of his DM Last Hgb 06/28/2023: 6.2 Glucometer today: average 103 He is on a regimen of: Metformin XR 500 mg 1 tab po daily Microalbumin Pt was referred to our adaptive physical educator and Digital Advertising Specialist previously Assessment & Plan (12/07/2022 9:35 AM EDT): Pt here for a short term follow up in regards of his recently diagnosed DM Last Hgb 12/07/2022 was A1c 6.1 Glucometer today: average 108 He is on a regimen of: Metformin XR 500 mg 1 tab po daily Microalbumin Pt was referred to our adaptive physical educator and Digital Advertising Specialist Assessment & Plan (10/05/2022 9:05 AM EDT): Pt here for a short term follow up in regards of his recently diagnosed DM Last Hgb 08/17/2022 was A1c 6.6 Glucometer today: He is on a regimen of: Metformin XR 500 mg 1 tab po daily Microalbumin Pt was referred to our adaptive physical educator and Digital Advertising Specialist Assessment & Plan (08/17/2022 11:27 AM EDT): FBS 126 Hgb A1c 6.6 New diagnosis Plan: Start Metformin XR 500 mg 1 tab po daily Obtain Microalbumin Follow up in 1 month Referral to adaptive physical educator and Digital Advertising Specialist MDD (major depressive disord er), recurrent, in partial remission 05/04/2022 Assessment & Plan (09/06/2024 10:32 AM EDT): Pt has been stable for years Used to see Teofilo Quiñonez [employer] Previously with auditory hallucinations, nightmares. Doing well, stable on medications started by former Psychiatrist Dr. Moon, but with lower dose of Zolpidem 5 mg. Plan: Continue Venlafaxine XR 150 mg daily, Aripiprazole 5 mg daily, and Zolpidem 5 mg at bedtime. Since he has been stable I will continue prescribing. Will refer to clinician Assessment & Plan (11/01/2023 11:12 AM EDT): Pt has been stable for years Used to see Teofilo Quiñonez [employer] Previously with auditory hallucinations, nightmares. Doing well, [...] further medication management. He should contact [facility] with any issues or concerns. All [...] Assessment & Plan (04/15/2022 9:29 AM EST): Elin oro prescribed [facility] health care 04/14/2022 Assessment & Plan (06/07/2024 11:59 AM EDT): PSA 03/29/2024 Normal Most recent Colonoscopy 12/17/[address] Fitzpatrick Assessment & Plan (03/06/2024 10:04 AM EST): PSA ordered Most recent Colonoscopy 12/17/[address] Fitzpatrick Assessment & Plan (08/17/2022 11:15 AM EDT): Most recent Colonoscopy 12/17/[address] Fitzpatrick Assessment & Plan (04/15/2022 9:17 AM EST): Exam today within normal limits Most recent Colonoscopy 12/17/[address] Fitzpatrick Obstructive sleep apnea syndrome 10/19/2016 Assessment & Plan (06/07/2024 11:52 AM EDT): Sleep Study was done on 05/15/2012 and showed moderate CHANDRAKANT in the supine position, He now has a Cpap . Pt tells me he is not using it regularly because he is not getting relief Pt seen at [facility] 03/2024 who recommended a split titration sleep study. Pt is going to schedule his appointment. Assessment & Plan (03/06/2024 10:01 AM EST): [...] obstructive lung disease 02/26/2016 Assessment & Plan (06/07/2024 11:56 AM EDT): Pt used to be under the care of risk management specialist (Dr Martinez) last note on 01/2019 [...] with no recent exacerbations Assessment & Plan (06/28/2023 8:54 AM EDT): Pt used to be under the care of risk management specialist (Dr Martinez) last note on 01/2019 [...] PM EST): Pt under the care of risk management specialist (Dr Martinez) last note on 01/2019 [...] MDI. Depressive disorder 12/30/2011 Assessment & Plan (06/07/2024 11:58 AM EDT): Patient with Depression He no longer seeing a Psychiatrist Dr Moon retired,he was under our Psychopharmacology clinic He is on a regimen of:: venlafaxine ER 150 mg daily, Abilify 10 mg po daily , Ambien 10mg po daily. and Trazodone 50 mg at bedtime and Ambien 10 mg 1/2 tab at bed time. Will refer to our [employer] Psych prescriber Assessment & Plan (04/14/2022 5:29 PM EST): Patient with Depression His Psychiatrist Dr Moon retired,he is now under our Psychopharmacology clinic He is on a regimen of:: venlafaxine ER 150 mg daily, Abilify 10 mg po daily , Ambien 10mg po daily. and Trazodone 50 mg at bedtime and Ambien 10 mg 1/2 tab at bed time. Hypertension 12/30/2011 Assessment & Plan (12/06/2024 11:48 AM EDT): Pt here for a follow up BP currently controlled Regimen: Norvasc 5mg po daily and Metoprolol XL 100 mg po daily( started by Dr Hare ) and Furosemide 60 mg q morning, Losartan was discontinued due to concerns of angioedema Most recent electrolytes, Bun and Creatinine done on: Lab Results Component Value Date NA 141 03/29/2024 NA 142 07/12/2023 K 4.8 03/29/2024 K 4.1 07/12/2023 CL 108 03/29/2024 CL 104 07/12/2023 BUN 14 03/29/2024 BUN 14 07/12/2023 CREATININE 0.96 03/29/2024 CREATININE 1.02 07/12/2023 were wnl. Plan: Continue current regimen patient advised to adhere to a low sodium diet, encouraged about medication compliance, counseled about weight loss. Assessment & Plan (09/06/2024 10:26 AM EDT): Pt here for a follow up BP currently controlled on a regimen of Norvasc 5mg po daily and Metoprolol XL 100 mg po daily started by Dr Hare and Furosemide 60 mg q morning, Losartan was discontinued due to concerns of angioedema Most recent electrolytes, Bun and Creatinine done on: Lab Results Component Value Date NA 141 03/29/2024 NA 142 07/12/2023 K 4.8 03/29/2024 K 4.1 07/12/2023 CL 108 03/29/2024 CL 104 07/12/2023 BUN 14 03/29/2024 BUN 14 07/12/2023 CREATININE 0.96 03/29/2024 CREATININE 1.02 07/12/2023 were wnl. Plan: Continue current regimen patient advised to adhere to a low sodium diet, encouraged about medication compliance, counseled about weight loss. Assessment & Plan (06/07/2024 11:41 AM EDT): Pt here for a follow up BP currently controlled on a regimen of Norvasc 5mg po daily and Metoprolol XL 100 mg po daily started by Dr Hare and Furosemide 60 mg q morning, Losartan was discontinued due to concerns of angioedema Most recent electrolytes, Bun and Creatinine done on: Lab Results Component Value Date NA 141 03/29/2024 NA 142 07/12/2023 K 4.8 03/29/2024 K 4.1 07/12/2023 CL 108 03/29/2024 CL 104 07/12/2023 BUN 14 03/29/2024 BUN 14 07/12/2023 CREATININE 0.96 03/29/2024 CREATININE 1.02 07/12/2023 were wnl. Plan: Continue current regimen patient advised to adhere to a low sodium diet, encouraged about medication compliance, counseled about weight loss. Assessment & Plan (03/06/2024 10:01 AM EST): [...] 100 mg po daily started by Dr Haer and Furosemide 60 mg q morning, Losartan [...] loss. Mixed hyperlipidemia 12/30/2011 Assessment & Plan (12/06/2024 11:49 AM EDT): Patient with elevated lipids. Most recent lipid profile from: Lab Results Component Value Date TRIG 132 03/29/2024 TRIG 198 (H) 07/12/2023 CHOL 125 03/29/2024 CHOL 141 07/12/2023 LDLCHOLCAL 56 03/29/2024 LDLCHOLCAL 57 07/12/2023 HDL 43 03/29/2024 HDL 45 07/12/2023 Currently on a regimen of: Atorvastatin 20mg po qhs. Lipids at target, repeat Lipid profile advised to try to adhere to a low cholesterol diet, counseled and educated about diet and exercise, Patient encouraged to come up with a personal goal for weight loss. Assessment & Plan (09/06/2024 10:26 AM EDT): Patient with elevated lipids. Most recent lipid profile from: Lab Results Component Value Date TRIG 132 03/29/2024 TRIG 198 (H) 07/12/2023 CHOL 125 03/29/2024 CHOL 141 07/12/2023 LDLCHOLCAL 56 03/29/2024 LDLCHOLCAL 57 07/12/2023 HDL 43 03/29/2024 HDL 45 07/12/2023 Currently on a regimen of: Atorvastatin 20mg po qhs. Lipids at target advised to try to adhere to a low cholesterol diet, counseled and educated about diet and exercise, Patient encouraged to come up with a personal goal for weight loss. Assessment & Plan (08/17/2022 11:14 AM EDT): [...] Encounters Date Type Department Care Team Description 12/06/2024 11:30 AM EDT Office Visit [facility] [address] [place] [id number] Jaxon Sousa MD Hypertension, unspecified type (Primary Dx); Type 2 diabetes mellitus without complication, without long-term current use of insulin (HCC); Mixed hyperlipidemia; Phimosis of penis; Encounter for immunization 12/06/2024 Travel 12/05/2024 Telephone [facility] [address] [place] [address] Jaxon Sousa MD chart prep 11/26/2024 Refill [facility] [address] [place] [address] Jaxon Sousa MD 11/20/2024 Refill [facility] [address] [place] [address] Jaxon Sousa MD MDD (major depressive disorder), recurrent, in partial remission (CMS/HCC) 11/12/2024 Refill [facility] [address] [place] [address] Jaxon Sousa MD MDD (major depressive disorder), recurrent, in partial remission (CMS/HCC) 11/02/2024 Refill [facility] [address] [place] [address] Jaxon Sousa MD MDD (major depressive disorder), recurrent, in partial remission (CMS/HCC); Newly diagnosed diabetes (CMS/HCC) from Last 3 Months Immunizations Immunization Administration Dates Next Due Influenza High-dose Quadriva lent Preservative Free 12/07/2022,12/26/2019 Influenza injectable quadriv alent IIV4 with preservative 12/08/2017,02/08/2017,12/12/2014 Influenza injectable quadriv alent preservative free 04/02/2021,12/14/2018,02/26/2016 Influenza, High Dose Seasona l, Preservative Free 12/06/2024,03/06/2024 Influenza, IIV3, injectable 11/13/2013, 1 Influenza, Split [...] Sign Reading Time Taken Comments Blood Pressure 138/80 12/06/2024 11:33 AM EDT Pulse 71 12/06/2024 11:33 AM EDT Temperature 36.2 C (97.2 F) 12/06/2024 11:33 AM EDT Respiratory Rate 20 12/06/2024 11:33 AM EDT Oxygen Saturation 95% 09/19/2024 2:38 PM EDT Inhaled Oxygen Concentration - - Weight 93.3 kg (205 lb 9.6 oz) 12/06/2024 11:33 AM EDT Height 157.5 cm (5' 2 ) 12/06/2024 11:33 AM EDT Body Mass Index 37.6 12/06/2024 11:33 AM EDT Plan of Treatment Health Maintenance Due Date Last Done Comments CT Colonography 1953 FIT DNA/Cologuard 1953 FIT 1953 FOBT 1955 Sigmoidoscopy 1955 Diabetes: Foot Exam 06/24/1963 Eye Exam 06/24/1963 Pneumococcal Vaccine: 50+ Years (2 of 2 - PCV) 01/12/2002 01/12/2001 RSV Patients and Patients Aged 60 years or older (1 - Risk 60-74 years 1-dose series) 2013 Zoster Vaccines (2 of 3) 05/09/2014 03/14/2014 COVID-19 Vaccine (5 - season) 2024 04/01/2022, 02/19/2021, 06/03/2020, Additional history exists Depression Monitoring 12/07/2024 06/07/2024, 025 Diabetes: Hemoglobin A1C 03/08/2025 025, 09/06/2024, 06/07/2024, Additional history exists Lipid Panel 03/29/2025 03/29/2024, 05/0 09/2023, 07/21/2022, Additional history exists Alcohol/Substance Use Screening 06/07/2025 06/07/2024 SDOH Screening 06/07/2025 06/07/2024 Diabetes: Urine Protein Screening 09/06/2025 09/06/2024, 07/12/2023, 07/21/2022 Tobacco Screening 09/19/2025 09/19/2024 Colonoscopy 12/16/2025 12/17/2015 Colorectal Cancer Screening 12/16/2025 DTaP/Tdap/Td Vaccines (3 - Td or Tdap) 03/06/2034 03/06/2024, 11/13/2013, 02/04/2000 Hepatitis C Screening Completed 07/21/2022 Influenza Vaccine Completed 12/06/2024, , 12/07/2022, Additional history exists HIB Vaccines Aged Out [...] patient's age to complete this topic Meningococcal B Vaccine Aged Out No l onger eligible based on patient's age to complete [...] Procedure Name Priority Date/Time Associated Diagnosis Comments POCT GLYCATED HEMOGLOBIN, TOTAL Routine 12/06/2024 11:54 AM EDT Type 2 diabetes mellitus without complication, without long-term current use of insulin (HCC) POCT GLUCOSE Routine 12/06/2024 11:33 AM EDT Type 2 diabetes mellitus without complication, without long-term current use of insulin ([facility]) ALBUMIN, RANDOM URINE W/CREATININE Routine 09/06/2024 12:00 AM EDT Type 2 diabetes mellitus without complication, without long-term current use of insulin (CMS/HCC) LIPID PANEL, STANDARD Routine 03/29/2024 10:22 AM EST Type 2 diabetes mellitus without complication, without long-term current use of insulin (CMS/HCC) HEPATITIS C AB W/REFL TO HCV RNA, QN, PCR Routine 07/21/2022 9:36 AM EDT Depressive disorder Preventative health care HM COLONOSCOPY Routine 12/17/2015 from Last 3 Months or Most Recently Relevant to Health Maintenance Results * (ABNORMAL) POCT Hgb A1c (12/06/2024 11:54 AM EDT) Hemoglobin A1C 6.2(A) 4.0 - 5.7 % QC Media Lot # [id number] Lot# Expiration Date 5,127 Blood 12/06/2024 11:5 4 AM EDT Jaxon Abbasi MD POINT OF CARE TEST EN TER/EDIT ORDERABLES Final Result * POCT Glucose (12/06/2024 11:33 AM EDT) Glucose Blood, POC 102 60 - 200 mg/dL [employer] Lot # [id number] Lot# Expiration Date ,726 Blood Capillary blood specimen / Unknown 12/06/2024 11:33 AM EDT Jaxon Abbasi MD POINT OF CARE TEST EN TER/EDIT ORDERABLES Final Result * (ABNORMAL) Albumin, Random Urine W/Creatinine (09/06/2024 12:00 AM EDT) Creatinine, Urine 37.18 mg/dL [facility] Microalbumin Urine 146.0 mg/L H [facility] Microalbum Creatinine Ratio Ur 392.6(H) <30 ug/mg cr [facility] Comment:Albumin/Creatinine R atio Reference Ranges: Normal: < 30 ug/mg creatinine Microalbuminuria: 30 - 300 ug/mg creatinineClinical Albuminuria: > 300 ug/mg creatinine Urine (Urine, Random) 09/06/2024 09/06/2024 Jaxon Abbasi MD LAB URINE ORDERABLES Final Result Performing Organization Address City/[facility]/ZIP Co de Phone Number [facility] [address] [place] [address] [phone] * Lipid Panel, Standard (03/29/2024 10:22 AM EST) Triglycerides 132 <150 mg/dL [facility] Comment:Desirable Triglyceri de: less than 150 mg/dLBorderline High Triglyceride 150-199 mg/dLHigh Triglyceride: 200-499 mg/dLVery High Triglyceride: greater than or equal to 5OO mg/dL Cholesterol 125 <200 mg/dL [facility] Comment:Desirable Cholestero l: less than 200 mg/dLBorderline High Cholesterol: 200-239 mg/dLHigh Cholesterol: greater than 239 mg/dL LDL Cholesterol Calculated 56 <100 mg/dL [facility] Comment:Desirable LDL: less than 100 mg/dLNear Optimal/Above Optimal LDL: 110- 129 mg/dLBorderline High LDL: 130-159 mg/dLHigh LDL: 160-189 mg/dLVery High LDL: greater than or equal to 190 mg/dL HDL Cholesterol 43 >40 mg/dL [facility] Comment:Desirable HDL: great er than 40 mg/dL Note: This HDL assay may give artificially low results in patients with liver disease. Blood Venous blood specimen / Unknown 03/29/2024 10:22 AM EST 03/29/2024 11:20 AM EST Jaxon Abbasi MD LAB BLOOD ORDERABLES Final Result Performing Organization Address City/[facility]/ZIP Co de Phone Number [facility] [address] [place] [address] [phone] * Hepatitis C Antibody with Reflex to HCV, RNA, Quantitative, Real-Time PCR (07/21/2022 9:36 AM EDT) Hepatitis C Antibody NON-REACT ELIOT NON-REACT ELIOT [employer] [place] [employer] Index 0.12 <1.00 [employer] Comment: HCV antibody was non-reactive. There is no laboratory evidence of HCV infection. In most cases, no further action is required. However, if recent HCV exposure is suspected, a test for HCV RNA (test code 28606) is suggested. For additional information please refer to http://education.[employer]faq/UQK87i6 (This link is being provided for informational/ educational purposes only.) Blood Venous blood specimen / Unknown 07/21/2022 9:36 AM EDT 07/21/2022 9:37 AM EDT Narrative [facility] - 07/21/2022 9:01 PM EDT FASTING:YES FASTING: YES Jaxon Abbasi MD LAB BLOOD ORDERABLES Final Result [facility] [address], [place] [address] [employer] [address] [place] [address] * Colonoscopy (12/17/2015) Pathologist [facility] Colonoscopy Normal Normal 12/17/2015 Karin Rocha - 12/17/2015 10:29 AM EDT Recommended 10 year follow up Historical Provider HEALTH MAINTENANCE Edited Result - Final from Last 3 Months or Most Recently Relevant to Health Maintenance Insurance [facility] [employer] (O D-SNP) [place] [id number] Care Teams Expert Medical Writer Relationship Specialty Start Date End Date Jaxon Sousa MD [address] [place] [phone] PCP - General Internal Medicine 11/13/13
== END 2025-01-15 13:10 | disposition home or self-care (01) ==
LOC: HO.HUSH 11:18
PROVIDERS: PCP Internal Medicine; Visit Provider Urology
DX: N47.1 Phimosis (principal)
CPT/HCPCS: 99204

== ENCOUNTER → 2025-01-15 11:18 | Outpatient (BNVA) | payer OTHER, SELFPAY | PROVIDERS: PCP Internal Medicine; Visit Provider Urology | DX: N47.1 Phimosis (principal) | CPT/HCPCS: 99202 ==